=== PATIENT | female | born 1990 | race Caucasian/White ===

== ENCOUNTER → 2016-09-25 | Outpatient (REF) | payer OTHER | LOC: M LAB REF 19:47 | PROVIDERS: ATTEND Physician Assistant | DX: J02.9 Acute pharyngitis, unspecified (principal) ==

== ENCOUNTER → 2016-10-09 | Outpatient (REF) | payer OTHER | LOC: M LAB REF 18:47 | PROVIDERS: ATTEND Physician Assistant | DX: J02.9 Acute pharyngitis, unspecified (principal) ==

== ENCOUNTER → 2019-02-04 | Outpatient (CLI) | payer OTHER ==
[2019-02-04 18:25] LABS: CHLAMYDIA DNA AMPLIFICATION NEGATIVE (NEGATIVE); GC DNA AMPLIFICATION NEGATIVE (NEGATIVE)
== END ==
LOC: M WUC 14:58
PROVIDERS: ATTEND Registered Nurse
DX: Z01.818 Encounter for other preprocedural examination (principal)

== ENCOUNTER → 2019-02-04 | Outpatient (CLI) | payer OTHER | LOC: M WUC 14:54 | PROVIDERS: ATTEND Nurse Practitioner Family | DX: Z36.89 Encounter for other specified antenatal screening (principal) ==

== ENCOUNTER 2019-02-12 18:26 | Emergency (ER) | payer OTHER ==
[~2019-02-12] VITALS: Ht 172.7 cm; Wt 90.6 kg
[2019-02-12] MEDS ORDERED: SERT-138 (18:33)
[2019-02-12] MEDS ORDERED: LIOT25TA8 (18:33)
[2019-02-12] MEDS ORDERED: CLON0.5T2 (18:33)
[2019-02-12] MEDS ORDERED: VYVA40CA3 (18:33)
[2019-02-12 19:13] LABS: BASO # 0.1 10^3/uL (0.0-0.2); BASO % 0.7 % (0.0-1.0); EOS # 0.1 10^3/uL (0.0-0.50); EOS % 1.7 % (0.0-3.0); HEMATOCRIT 38.1 % (36.0-47.0); HEMOGLOBIN 12.9 g/dl (12.0-15.5); LYMPH # 2.6 10^3/uL (1.5-6.5); LYMPH % 31.2 % (24.0-44.0); MEAN CORPUSCULAR HEMOGLOBIN 31.7 pg (27.0-33.0); MEAN CORPUSCULAR HGB CONC 33.9 g/dl (32.0-36.5); MEAN CORPUSCULAR VOLUME 93.6 fl (80.0-96.0); MONO # 0.9 10^3/uL (0.0-0.8); MONO % 10.8 % (0.0-5.0); NEUTROPHILS # 4.7 10^3/uL (1.8-7.7); NEUTROPHILS % 55.4 % (36.0-66.0); PLATELET COUNT, AUTOMATED 226 10^3/uL (150-450); RED BLOOD COUNT 4.07 10^6/uL (4.00-5.40); WHITE BLOOD COUNT 8.4 10^3/uL (4.0-10.0)
[2019-02-12 19:31] LABS: BLOOD UREA NITROGEN 17 MG/DL (7-18); CALCIUM LEVEL 8.8 MG/DL (8.5-10.1); CARBON DIOXIDE LEVEL 26 MEQ/L (21-32); CHLORIDE LEVEL 106 MEQ/L (98-107); CREATININE FOR GFR 0.59 MG/DL (0.55-1.30); GLOMERULAR FILTRATION RATE > 60.0 (>60); GLUCOSE, FASTING 84 MG/DL (70-100); HCG, SERUM QUANTITATIVE 669 MIU/ML; POTASSIUM SERUM 4.4 MEQ/L (3.5-5.1); SODIUM LEVEL 137 MEQ/L (136-145)
--- NOTE | 2019-02-12 20:23 | REPVR ---
EXAM: US First Trimester, Transabdominal and US , Transvaginal EXAM DATE/TIME: 02/12/2019 7:26 PM CLINICAL HISTORY: 28 years old, female; complicated by abdominal or pelvic pain; Right lower quadrant; First trimester; Gestational age or lmp: Unknown; Prior surgery; Surgery date: 3-7 days post-operative; Additional info: Recent , ? retained products TECHNIQUE: Imaging protocol: Real-time transabdominal obstetrical ultrasound of the maternal pelvis and a first trimester , less than 14 weeks 0 days, with image documentation. Transvaginal imaging was used for better evaluation of the fetus and adnexa. COMPARISON: US PELVIC NON OB COMPLETE 05/22/2013 1:25 PM FINDINGS: Uterus: The uterus measures 10.6 x 3.2 x 5.3 cm. The endometrium measures 0.3 cm in thickness. No intrauterine or retained products of conception are seen. Cervix: Unremarkable. Right adnexa: The right ovary measures 2.9 x 2.1 x 2.6 cm and contains a 1.3 x 1 4 x 1 1 cm thick-walled cyst, possible corpus luteum. Left adnexa: The left ovary measures 3.1 x 2.0 x 2.0 cm. Intraperitoneal: No intraperitoneal free fluid. IMPRESSION: No intrauterine or sonographic evidence of retained products of conception. Electronically signed by: Shanda Morris On 02/12/2019 20:23:28 PM
[2019-02-12] MEDS ORDERED: NS 1,000 ML IV ONE (22:00)
[2019-02-12] MEDS ORDERED: KETOROLAC 30 MG/ML VIAL (J1885) IV ONE (22:00)
[2019-02-12] MEDS ORDERED: diazePAM 10 MG/2 ML INJ (J3360) IV ONE (22:00)
[2019-02-12] MEDS ORDERED: ISOVUE-370 76% 100ML VIAL (Q9967) As Ordered ONE (22:49)
--- NOTE | 2019-02-13 00:01 | REPVR ---
EXAM: CT Abdomen and Pelvis With Contrast EXAM DATE/TIME: 02/12/2019 11:04 PM CLINICAL HISTORY: 28 years old, female; Abdominal pain; Localized; Lower; Additional Info: RLQ, LUQ pain, 6d S/P D TECHNIQUE: Imaging protocol: Axial computed tomography images of the abdomen and pelvis with intravenous contrast. Coronal and sagittal reformatted images were created and reviewed. Radiation optimization: All CT scans at this facility use at least one of these dose optimization techniques: automated exposure control; mA and/or kV adjustment per patient size (includes targeted exams where dose is matched to clinical indication); or iterative reconstruction. Contrast material: ISOVUE 370;Contrast volume: 100 ml;Contrast route: IV; COMPARISON: CT ABD PELVIS WITH CONTRAST 01/30/2014 10:24 PM FINDINGS: Liver: Normal. No mass. Gallbladder and bile ducts: Normal. No calcified stones. No ductal dilation. Pancreas: Normal. No ductal dilation. Spleen: Normal. No splenomegaly. Adrenals: Normal. No mass. Kidneys and ureters: Normal. No hydronephrosis. Stomach and bowel: Negative for colonic diverticulitis. No abnormal bowel dilatation. No abnormal bowel wall thickening. Copious stool throughout the colon. Appendix: Appendix is normal. Intraperitoneal space: Normal. No free air. No significant fluid collection. Vasculature: Normal. No abdominal aortic aneurysm. Lymph nodes: Normal. No enlarged lymph nodes. Bladder: Unremarkable as visualized. Reproductive: Uterus is normal. Bones/joints: Disc osteophyte complex at L1-L2 with mild spinal stenosis. No acute fracture. Soft tissues: Unremarkable. IMPRESSION: 1. Copious stool throughout the colon. 2. No evidence of bowel obstruction or diverticulitis. 3. Disc osteophyte complex at L1-L2 with mild spinal stenosis. Unchanged from prior. Electronically signed by: Brian Kelly On 02/13/2019 00:00:21 AM
[2019-02-13] MEDS ORDERED: VALI5TAB PO (00:28)
[2019-02-13 00:29] VITALS: BP 114/74
== END 2019-02-13 00:52 | disposition home or self-care (01) ==
LOC: M ED 18:26
DX: R10.9 Unspecified abdominal pain (principal); Z98.890 Other specified postprocedural states; F41.9 Anxiety disorder, unspecified; E72.12 Methylenetetrahydrofolate reductase deficiency; Z87.891 Personal history of nicotine dependence; J30.2 Other seasonal allergic rhinitis; Z79.899 Other long term (current) drug therapy
CPT/HCPCS: 74177; 76801; 76817; 80048; 81001; 84702; 85025; 86850; 86900; 86901; 93976; 96374; 99284; J3360; Q9967

== ENCOUNTER → 2019-02-20 | Outpatient (CLI) | payer OTHER ==
[~2019-02-20] MED LIST: CLON0.5T8; LIOT25TA2; SERT-138; VALI5TAB PO; VYVA40CA3
--- NOTE | 2019-02-20 16:19 | REP ---
Thyroid ultrasound: The patient reportedly has a palpable neck mass. Ultrasonography of the neck mass is performed. The right thyroid lobe measures 4.3 x 2.0 x 1.6 cm. The left thyroid lobe measures 4.1 x 1.3 x 1.6 cm. The thyroid isthmus measures 3 mm thickness. The thyroid is upper normal size. The thyroid parenchyma is diffusely heterogeneous. There are no focal thyroid nodules or cysts. There are no extra thyroid masses identified by ultrasound. Impression: The thyroid gland is diffusely upper normal size. The thyroid parenchyma is diffusely heterogeneous, this is nonspecific and may represent diffuse thyroid goiter, however, can also be seen and thyroiditis. There are no focal thyroid masses or cysts. No extra thyroid masses or cysts are identified. Electronically Signed by Tone Charles MD 02/20/2019 04:11 P
--- NOTE | 2019-02-20 16:28 | REP ---
Focused left breast sonography: History: Palpable lump 2 o'clock. Findings: Left breast is scanned from 1 o'clock to 3 o'clock adjacent to the nipple at the site of the palpable lump. There is heterogeneous fibroglandular background echotexture. At the 2 o'clock position at the level of the palpable lump there is a 0.4 x 0.3 x 0.2 cm subdermal avascular cyst. No other abnormality. Impression: BIRADS category II benign findings. Clinical follow-up is advised. Electronically Signed by Nicholas Ponce MD 02/20/2019 04:52 P
== END ==
LOC: M RAD 14:21
PROVIDERS: ATTEND Nurse Practitioner Family
DX: N63.21 Unspecified lump in the left breast, upper outer quadrant (principal); E06.9 Thyroiditis, unspecified

== ENCOUNTER → 2019-04-15 | Outpatient (REF) | payer OTHER ==
[2019-04-15 17:51] LABS: ALBUMIN 3.9 GM/DL (3.2-5.2); ALT/SGPT 30 U/L (12-78); BILIRUBIN,TOTAL 0.6 MG/DL (0.2-1.0); BLOOD UREA NITROGEN 13 MG/DL (7-18); CALCIUM LEVEL 8.8 MG/DL (8.5-10.1); CARBON DIOXIDE LEVEL 26 MEQ/L (21-32); CHLORIDE LEVEL 104 MEQ/L (98-107); CREATININE FOR GFR 0.64 MG/DL (0.55-1.30); FREE T4 0.53 NG/DL (0.76-1.46); GLOMERULAR FILTRATION RATE > 60.0 (>60); GLUCOSE, FASTING 59 MG/DL (70-100); POTASSIUM SERUM 4.2 MEQ/L (3.5-5.1); SODIUM LEVEL 138 MEQ/L (136-145); TOTAL PROTEIN 7.7 GM/DL (6.4-8.2)
== END ==
LOC: M SFHCPLAZ 14:10
PROVIDERS: ATTEND Nurse Practitioner Family
DX: E03.9 Hypothyroidism, unspecified (principal)

== ENCOUNTER 2020-07-19 13:13 | Emergency (ER) | payer OTHER ==
[~2020-07-19] VITALS: Ht 174 cm; Wt 105.4 kg
[~2020-07-19 13:13] MED LIST changes: +CLON0.5T2; -CLON0.5T8; -LIOT25TA2; +LIOT25TA8
--- OUTSIDE RECORDS SUMMARY | 2020-07-19 13:20 | CCD | Continuity of Care Document ---
Author Author [facility] Organization Unknown Address [address] [place] [address] [place] [address] Phone [phone] Care Team Providers Care Library Director Name Role Phone Manuel Yu Publi AUTM [phone] Problems Description No Information Available Social History Type Date Description Comments Sex Unknown Tobacco Use Start: Unknown Currently smokes 1-5 Cigarettes Daily ETOH Use Occasionally consumes alcohol Tobacco Use Start: Unknown Patient is a current smoker, smo kes every day Allergies, Adverse Reactions, Alerts Description No Known Drug Allergies Medications Active Medications SIG Qnty Indications Ordering Provide r Date Vyvanse 30mg Capsules Unknown Zoloft 100mg Tablets 1 by mouth every day Unknown Cytomel Unknown Immunizations Description No Information Available Vital Signs Date Vital Result Comment 10/09/2016 1:40pm BP Systolic 110 mmHg BP Diastolic 76 mmHg Heart Rate 82 /min Respiratory Rate 18 /min O2 % BldC Oximetry 98 % Body Temperature 98.0 F Weight 225.00 lb Height 68 inches 5'8" BMI (Body Mass Index) 34.2 kg/m2 Pain Level 4 09/25/2016 4:04pm BP Systolic 126 mmHg BP Diastolic 86 mmHg Heart Rate 96 /min Respiratory Rate 18 /min O2 % BldC Oximetry 98 % Body Temperature 98.2 F Weight 223.00 lb Height 68 inches 5'8" BMI (Body Mass Index) 33.9 kg/m2 Pain Level 5 Results Description No Information Available Procedures Description No Information Available Medical Devices Description No Information Available Encounters Description No Information Available Assessments Date Code Description Provider 04/20/2020 Z20.828 Contact with and (vázquez spected) exposure to other viral communicable diseases CHLOE Don 03/03/2020 Z20.828 Contact with and (vázquez spected) exposure to other viral communicable diseases CHLOE Jaramillo Plan of Treatment No Information Available Functional Status Description No Information Available Mental Status Description No Information Available Referrals Description No Information Available
--- OUTSIDE RECORDS SUMMARY | 2020-07-19 13:20 | CCD | Continuity of Care Document ---
Author Author [facility] Organization [facility] Address [address] [place] [address] Phone Support Name Relationship Address Phone Karen Brady PRS [address] [facility] [address] Allergies, Adverse Reactions, Alerts Allergen Type Severity Reaction Last Updated Verified Status SEASONAL ALLERGIES Allergy Moderate plugged up nose, sneezing, sl throat swe lling, eyes puffy January 26, 2020 10:13am No Active Medications Medication Status Dose Units Route Directions Qty Days Start Date End Date Instructions Venlafaxine Active MG PO January 26, 2020 10:13am Lisdexamfetamine (Vyvanse) 50 mg capsule Active MG PO January 26, 2020 10:1 5am Clonazepam Active MG PO January 26, 2020 10:16am Buspirone Active MG PO January 26, 2020 10:16am Amoxicillin Active MG PO January 26, 2020 10:17am Chlorhexidine Gluconate Active BC January 26, 2020 10:17am Acetaminophen Active MG PO January 26, 2020 10:20am Ibuprofen Active MG PO January 26, 2020 10:20am Cyclobenzaprine Discontinued 10 MG PO Three times a day 15 5 January 26, 2020 10: 51am January 30, 2020 10:02am Liothyronine Discontinued 25 MCG PO daily 90 January 26, 2020 11:05am June 08, 2020 3:44pm Liothyronine Active 25 MCG PO daily 30 June 22, 2020 2:55pm Venlafaxine (Effexor Xr) 75 MG capsule,extended releas e 24hr Discontinued 75 MG PO Three times a day November 25, 2014 1:52pm July 16, 2015 1:57pm [place] Carbonate Discontinued 300 MG PO Four Times a Day November 25, 2014 1:52p m July 16, 2015 1:57pm trazadone Discontinued NEEDED November 25, 2014 1:52pm July 09, 2015 11:55am Clonazepam Discontinued 0.5 MG PO NEEDED November 25, 2014 1:53pm July 16, 2015 2:16pm Metformin Discontinued 1 TAB PO 2 Times Per Day 180 December 16, 2014 12:15pm August 20, 2015 4:58pm Spironolactone Discontinued 25 MG PO 2 Times Per Day December 16, 2014 12:15pm July 05, 2015 11:11am Levothyroxine (Synthroid) 25 MCG tablet Discontinued 25 MCG PO Once Per Day 30 December 16, 2014 12:15pm December 13, 2015 2:05pm CONTROL PILL Discontinued December 16, 2014 12:15pm December 13, 2015 2:04pm Trazodone Discontinued 1 TAB PO 2 Times Per Day 60 July 09, 2015 11:55am July 09, 2015 11:56am 2 p.o. q h s as directed Trazodone Discontinued 2 TAB PO At Bedtime 60 July 09, 2015 11:56am July 16, 2015 2:16pm 2 p.o. q hs as directed Venlafaxine Discontinued 75 MG PO Four Times a Day 120 July 16, 2015 1:57pm July 16, 2015 2:16pm Trazodone Discontinued 0 .5 TAB PO At Bedtime 30 July 16, 2015 2:16pm November 25, 2015 1:55pm 1/2 or 1 po p.o. q hs prn insomnia. Sertraline (Zoloft) 50 MG tablet Dis continued 1 TAB PO O nce Per Day 30 July 16, 2015 2:16pm December 13, 2015 2:06pm Clonazepam Discontinued 0.5 MG PO BID prn 60 July 16, 2015 2:16pm August 11, 2015 2:57pm prn anxiety Clonazepam Discontinued 0.5 MG PO BID prn August 11, 2015 2:57pm September 07, 2015 2:54pm prn anxiety Clonazepam Discontinued 0.5 MG PO BID prn September 07, 2015 3:01pm September 08, 2015 9:36am prn anxiety Clonazepam Discontinued 0.5 MG PO BID PRN September 08, 2015 9:36am November 25, 2015 2:22pm BID PRN FOR ANXIETY Metformin Discontinued 2 50 MG PO Once Per Day 60 September 08, 2015 12:35pm June 20, 2016 3:04pm Clonazepam Discontinued 0.5 MG PO BID PRN November 25, 2015 2:23pm December 23, 2015 7:04am BID PRN FOR ANXIETY Sertraline (Zoloft) 100 MG tablet Di scontinued 100 MG PO Once Per Day November 25, 2015 2:31 pm March 10, 2016 7:04am Lisdexamfetamine (Vyvanse) 20 MG capsule Discontinued 20 MG PO O nce Per Day November 25, 2015 2:32pm December 23, 2015 7:04am Norgestimate-Ethinyl Estradiol (Sprintec 28 Day Tablet) 1 EACH tablet Discontinued 1 EACH PO Once Per Day December 13, 2015 2:04pm December 12 2:06pm Levothyroxine (Synthroid*) 50 MCG tablet Discontinued 1 TAB PO O nce Per Day December 13, 2015 2:05pm June 20, 2016 3:18pm Norgestimate-Ethinyl Estradiol (Sprintec 28 Day Tablet) 1 EACH tablet Discontinued 1 EACH PO Once Per Day December 13, 2015 2:06pm January 15 6:59am Sertraline Discontinued 1 TAB PO Once Per Day December 13, 2015 2:06pm December 13, 2015 2:06pm Sertraline Discontinued 1 TAB PO Once Per Day December 13, 2015 2:06pm June 20, 2016 3:04pm Clonazepam Discontinued 0.5 MG PO BID PRN December 23, 2015 7:04am February 08, 2016 5:18pm BID PRN FOR ANXIETY Lisdexamfetamine (Vyvanse) 20 MG capsule Discontinued 20 MG PO O nce Per Day December 23, 2015 7:04am June 20, 2016 3:04pm Lisdexamfetamine (Vyvanse) 30 MG capsule Discontinued 30 MG PO O nce Per Day December 30, 2015 1:20pm February 08, 2016 5:18pm Clonazepam Discontinued 0.5 MG PO BID PRN February 08, 2016 5:19pm March 07, 2016 9:24am BID PRN FOR ANXIETY Lisdexamfetamine (Vyvanse) 30 MG capsule Discontinued 30 MG PO O nce Per Day February 08, 2016 5:19pm March 07, 2016 9:24am Clonazepam Discontinued 0.5 MG PO BID PRN March 07, 2016 9:25am April 07, 2016 2:16pm BID PRN FOR ANXIETY Lisdexamfetamine (Vyvanse) 30 MG capsule Discontinued 30 MG PO O nce Per Day March 07, 2016 9:25am April 07, 2016 2:16pm Sertraline (Zoloft) 100 MG tablet Di scontinued 100 MG PO Once Per Day March 10, 2016 7:04am August 25, 2016 11:40am Clonazepam Discontinued 0.5 MG PO BID PRN April 07, 2016 2:17pm May 18, 2016 5:42pm BID PRN FOR ANXIETY Lisdexamfetamine (Vyvanse) 30 MG capsule Discontinued 30 MG PO O nce Per Day April 07, 2016 2:17pm May 18, 2016 5:42pm Clonazepam Discontinued 0.5 MG PO BID PRN May 18, 2016 5:42pm June 22, 2016 12:54pm BID PRN FOR ANXIETY Lisdexamfetamine (Vyvanse) 30 MG capsule Discontinued 30 MG PO O nce Per Day May 18, 2016 5:42pm June 22, 2016 12:54pm Levothyroxine Discontinued 1 TAB PO Once Per Day June 20, 2016 3:21pm June 22, 2016 10:37am Levothyroxine Discontinued 1 TAB PO Once Per Day June 22, 2016 10:37am August 22, 2016 8:58am Clonazepam Discontinued 0.5 MG PO BID PRN June 22, 2016 12:55pm July 18, 2016 1:39pm BID PRN FOR ANXIETY Lisdexamfetamine (Vyvanse) 30 MG capsule Discontinued 30 MG PO O nce Per Day June 22, 2016 12:55pm July 18, 2016 1:39pm Clonazepam Discontinued 0.5 MG PO BID PRN July 18, 2016 1:40pm August 22, 2016 9:27am BID PRN FOR ANXIETY Lisdexamfetamine (Vyvanse) 30 MG capsule Discontinued 30 MG PO O nce Per Day July 18, 2016 1:40pm August 22, 2016 9:27am Lisdexamfetamine (Vyvanse) 30 MG capsule Discontinued 30 MG PO O nce Per Day August 22, 2016 9:28am September 21, 2016 4:13pm Clonazepam Discontinued 0.5 MG PO BID PRN August 22, 2016 9:30am September 21, 2016 4:13pm BID PRN FOR ANXIETY Liothyronine (Cytomel) 25 MCG tablet Discontinued 25 MCG PO Once Per Day August 22, 2016 9:38am August 25, 2016 11:40am Sertraline (Zoloft) 25 MG tablet Dis continued 25 MG PO O nce Per Day August 22, 2016 9:47am August 25, 2016 11:40am Liothyronine (Cytomel) 25 MCG tablet Discontinued 25 MCG PO Once Per Day August 25, 2016 11:40am February 01, 2017 3:57pm Sertraline (Zoloft) 100 MG tablet Di scontinued 100 MG PO Once Per Day August 25, 2016 11:40am November 05, 2017 12:17pm Sertraline (Zoloft) 25 MG tablet Dis continued 25 MG PO O nce Per Day August 25, 2016 11:40am November 05, 2017 12:17pm Clonazepam Discontinued 0.5 MG PO BID PRN September 21, 2016 4:14pm October 31, 2016 4:46pm BID PRN FOR ANXIETY Lisdexamfetamine (Vyvanse) 30 MG capsule Discontinued 30 MG PO O nce Per Day September 21, 2016 4:14pm October 31, 2016 4:46pm Clonazepam Discontinued 0.5 MG PO BID PRN October 31, 2016 4:47pm 2016 3:15pm BID PRN FOR ANXIETY Lisdexamfetamine (Vyvanse) 30 MG capsule Discontinued 30 MG PO O nce Per Day October 31, 2016 4:47pm November 24, 2016 10:43am Lisdexamfetamine (Vyvanse) 40 MG capsule Discontinued 40 MG PO O nce Per Day November 24, 2016 10:44am December 25, 2016 3:15pm Varenicline (Chantix*) 1 EACH tablets,dose pack Discontinued 1 TAB PO As Directed (Daily) November 24, 2016 10:47am January 04, 2017 10:47am Days 1 3: Take 1 tb (0.5 mg) once daily Days 4 7: Take 1 tb (0.5 mg) twice daily Day 8 on: 1 mg twice daily Clonazepam Discontinued 0.5 MG PO BID PRN December 25, 2016 3:16pm January 04, 2017 10:47am BID PRN FOR ANXIETY. #[id number] Lisdexamfetamine (Vyvanse) 40 MG capsule Discontinued 40 MG PO O nce Per Day December 25, 2016 3:16pm January 04, 2017 10:48am #[id number] Lisdexamfetamine (Vyvanse) 40 MG capsule Discontinued 40 MG PO O nce Per Day 60 January 04, 2017 10:49am February 27, 2017 2:48pm #[id number] Clonazepam Discontinued 0.5 MG PO BID PRN January 05, 2017 12:28pm February 01, 2017 3:57pm BID PRN FOR ANXIETY. #[id number] Norgestimate-Ethinyl Estradiol (Sprintec 28 Day Tablet) 1 EACH tablet Discontinued 1 EACH PO Once Per Day 3 January 15, 2017 6:59am September 06 7:25am Liothyronine (Cytomel) 25 MCG tablet Discontinued 25 MCG PO Once Per Day February 01, 2017 3:57pm May 16, 2017 5:57pm Clonazepam Discontinued 0.5 MG PO BID PRN February 01, 2017 3:57pm February 05, 2017 10:37am BID PRN FOR ANXIETY. #[id number] Clonazepam Discontinued 0.5 MG PO BID PRN February 05, 2017 10:38am March 14, 2017 4:28pm BID PRN FOR ANXIETY. #[id number] Omeprazole Discontinued 40 MG PO Once Per Day February 22, 2017 8:07am October 30, 2018 5:57am Omeprazole Discontinued 40 MG PO Once Per Day February 22, 2017 8:07am January 26, 2020 10:18am Lisdexamfetamine (Vyvanse) 40 MG capsule Discontinued 40 MG PO O nce Per Day 60 February 27, 2017 2:48pm April 09, 2017 11:22am #[id number] Clonazepam Discontinued 0.5 MG PO BID PRN March 14, 2017 4:29pm April 19, 2017 12:24pm BID PRN FOR ANXIETY. #[id number] Lisdexamfetamine (Vyvanse) 40 MG capsule Discontinued 40 MG PO O nce Per Day 60 April 09, 2017 11:22am May 16, 2017 5:57pm #[id number] Clonazepam Discontinued 0.5 MG PO BID PRN 30 April 19, 2017 12:25pm May 16, 2017 5:57pm BID PRN FOR ANXIETY. #[id number] Liothyronine (Cytomel) 25 MCG tablet Discontinued 25 MCG PO Once Per Day 90 May 16, 2017 5:57pm December 25, 2017 9:16am as above Clonazepam Discontinued 0.5 MG PO BID PRN 30 May 16, 2017 5:58pm June 12, 2017 5:26pm BID PRN FOR ANXIETY. #[id number] Lisdexamfetamine (Vyvanse) 40 MG capsule Discontinued 40 MG PO O nce Per Day 60 May 16, 2017 5:58pm July 23, 2017 11:37am #[id number] Clonazepam Discontinued 0.5 MG PO BID PRN 30 June 12, 2017 5:29pm July 23, 2017 11:42am BID PRN FOR ANXIETY. #[id number] Varenicline (Chantix) 1 MG tablet Di scontinued 1 MG PO 2 Times Per Day 60 July 23, 2017 11:32am October 30, 2018 6:20am Varenicline (Chantix) 1 MG tablet Di scontinued 1 MG PO 2 Times Per Day 60 July 23, 2017 11:32am January 26, 2020 10:18am Lisdexamfetamine (Vyvanse) 40 MG capsule Discontinued 40 MG PO O nce Per Day 30 July 23, 2017 11:38am September 17, 2017 2:22pm #[id number] Clonazepam Discontinued 0.5 MG PO BID PRN 45 July 23, 2017 11:43am September 17, 2017 2:22pm BID PRN FOR ANXIETY. #[id number] Norgestimate-Ethinyl Estradiol (Sprintec 28 Day Tablet) 1 EACH tablet Discontinued 1 EACH PO Once Per Day 3 September 06, 2017 7:25am June 1:24pm Clonazepam Discontinued 0.5 MG PO BID PRN 45 September 17, 2017 2:22pm October 29, 2017 4:36pm BID PRN FOR ANXIETY. #[id number] Lisdexamfetamine (Vyvanse) 40 MG capsule Discontinued 40 MG PO O nce Per Day September 17, 2017 2:22pm October 29, 2017 4:36pm #[id number] Clonazepam Discontinued 0.5 MG PO BID PRN October 29, 2017 4:37pm December 12, 2017 4:53pm BID PRN FOR ANXIETY. #[id number] Lisdexamfetamine (Vyvanse) 40 MG capsule Discontinued 40 MG PO O nce Per Day October 29, 2017 4:37pm December 12, 2017 4:53pm #[id number] Sertraline (Zoloft) 100 MG tablet Di scontinued 100 MG PO Once Per Day November 05, 2017 12:17 pm October 30, 2018 6:44am Sertraline (Zoloft) 100 MG tablet Di scontinued 100 MG PO Once Per Day November 05, 2017 12:17 pm January 26, 2020 10:18am Sertraline (Zoloft) 25 MG tablet Dis continued 25 MG PO O nce Per Day November 05, 2017 12:17 pm October 30, 2018 6:44am Sertraline (Zoloft) 25 MG tablet Dis continued 25 MG PO O nce Per Day November 05, 2017 12:17 pm January 26, 2020 10:18am Clonazepam Discontinued 0.5 MG PO BID PRN December 12, 2017 4:53pm January 10, 2018 3:17pm BID PRN FOR ANXIETY. #[id number] Lisdexamfetamine (Vyvanse) 40 MG capsule Discontinued 40 MG PO O nce Per Day December 12, 2017 4:53pm January 21, 2018 11:08am #[id number] Liothyronine (Cytomel) 25 MCG tablet Discontinued 25 MCG PO Once Per Day December 25, 2017 9:16am October 30, 2018 7:04am as above Liothyronine (Cytomel) 25 MCG tablet Discontinued 25 MCG PO Once Per Day December 25, 2017 9:16am January 26, 2020 10:17am as above Omeprazole Discontinued 40 MG PO Once Per Day January 10, 2018 3:15pm October 30, 2018 7:12am Omeprazole Discontinued 40 MG PO Once Per Day January 10, 2018 3:15pm January 26, 2020 10:18am Aripiprazole (Abilify*) 2 MG tablet Discontinued 2 MG PO On ce Per Day January 10, 2018 3:1 5pm October 30, 2018 7:12am Aripiprazole (Abilify*) 2 MG tablet Discontinued 2 MG PO On ce Per Day January 10, 2018 3:1 5pm January 26, 2020 10:15am Clonazepam Discontinued 0.5 MG PO BID PRN January 10, 2018 3:18pm March 07, 2018 11:31am BID PRN FOR ANXIETY. #[id number] Lisdexamfetamine (Vyvanse) 40 MG capsule Discontinued 40 MG PO O nce Per Day January 21, 2018 11:08am March 07, 2018 11:31am Bupropion Hcl (Wellbutrin Sr) 100 MG tab let sustained-release 12 hr Discontinued 100 MG PO Once Per Day February 27, 2018 11:16am January 11:11am Bupropion Hcl (Wellbutrin Sr) 100 MG tab let sustained-release 12 hr Discontinued 100 MG PO Once Per Day 30 February 28, 2018 11:11am March 05, 2018 10:33am Bupropion Hcl (Smoking Deter) Discontinued 150 MG PO Once Per Day March 05, 2018 10:33am October 30, 2018 7:33am Bupropion Hcl (Smoking Deter) Discontinued 150 MG PO Once Per Day March 05, 2018 10:33am January 26, 2020 10:14am Lisdexamfetamine (Vyvanse) 40 MG capsule Discontinued 40 MG PO O nce Per Day March 07, 2018 11:32am April 10, 2018 1:59pm #[id number] Clonazepam Discontinued 0.5 MG PO BID PRN March 07, 2018 11:32am April 10, 2018 1:59pm BID PRN FOR ANXIETY. #[id number] Lisdexamfetamine (Vyvanse) 40 MG capsule Discontinued 40 MG PO O nce Per Day April 10, 2018 1:59pm October 30, 2018 7:54am #[id number] Lisdexamfetamine (Vyvanse) 40 MG capsule Discontinued 40 MG PO O nce Per Day 7 April 10, 2018 1:59pm January 26, 2020 10:17am #[id number] Clonazepam Discontinued 0.5 MG PO BID PRN 14 April 10, 2018 1:59pm June 22, 2020 2:54pm BID PRN FOR ANXIETY. #[id number] Norgestimate-Ethinyl Estradiol (Sprintec 28 Day Tablet) 1 EACH tablet Discontinued 1 EACH PO Once Per Day 3 June 24, 2018 1:24pm October 30, 2018 8:44am Norgestimate-Ethinyl Estradiol (Sprintec 28 Day Tablet) 1 EACH tablet Discontinued 1 EACH PO Once Per Day 3 June 24, 2018 1:24pm December 10:18am Cyclobenzaprine Discontinued 10 MG PO Three times a day 15 January 30, 2020 10: 01am February 03, 2020 11:00pm Varenicline (Chantix Starting Month Box) 0.5 mg (11)- 1 mg (42) tablets,dose pack Active 0 PO per package directions April 23, 2020 2:52pm PO PER PKG DIR Liothyronine Discontinued 25 MCG PO daily June 08, 2020 3:44pm June 22, 2020 2:55pm Problems Active Problems Medical Problem Onset Date Status Low back pain Active Hypothyroidism Active Procedures Procedure Date Performed Status HIPS BILAT 2 VIEW W/PELVIS December 11:45am completed Xray Sacrum and coccyx January 25 11:45am completed Xray Lumbar spine AP/Lat January 26, 2020 11:44am completed Relevant Diagnostic Tests and/or Laboratory Data Diagnostic Imaging Reports Report Dictated Date/Time Dictated By Status Radiology Report January 26, 2020 1:17pm Rocco Keller MD completed [facility] [address] [place] [id number] [phone] NAME SEX PT STATUS ACCOUNT NUMBER ZOYA WONG REG REF [id number] ORDERING PHYSICIAN LOCATION MEDICAL RECORD NO. Karen LUIS BUSBY [id number] ATTENDING PHYSICIAN DATE OF DATE OF EXAM/TIME Karen Brady NP 1992 01/26/20 / 1245 TYPE / EXAM HIPS BILAT 2 VIEW W/PELVIS REASON FOR EXAM Back pain into hips; acute on chronic COMPARISON: None FINDINGS: There is normal alignment and position of the bones of the hip and pelvis. No evidence for subluxation or fracture can be identified. No significant degenerative changes are noted within the hip. IMPRESSION: No fracture, dislocation, or other significant abnormality. Reported By Rocco Keller MD on 01/26/201316 Signed By Rocco Keller MD on 01/26/201316 Date Time CC: Karen Keller MD Techn: YOUNG Trans Dt/Tm: Trans by: DT Prt Dt/Tm: [id number]: Total DLP = 0.00 mGy-cm Fluoroscopy Time (in secs): Radiology Report January 26, 2020 1:17pm Rocco Keller MD completed [place] [id number] [phone] NAME SEX PT STATUS ACCOUNT NUMBER ZOYA WONG REG REF [id number] ORDERING PHYSICIAN LOCATION MEDICAL RECORD NO. Karen Brady RAD [id number] ATTENDING PHYSICIAN DATE OF DATE OF EXAM/TIME Karen Brady NP 1990 01/26/20 / 1245 TYPE / EXAM Xray Sacrum and coccyx REASON FOR EXAM Back pain into hips; acute on chronic COMPARISON: None FINDINGS: There is normal alignment and position of the bones of the sacrum and coccyx. No evidence for a fracture or any other abnormalities can be noted. IMPRESSION: No fracture, dislocation, or other significant abnormality. Reported By Rocco Keller MD on 01/26/201316 Signed By Rocco Keller MD on 01/26/20 132 Date Time CC: Karen Cedillom Arianna, MD Techn: FROJO Trans Dt/Tm: Trans by: DT Prt Dt/Tm: : Total DLP = 0.00 mGy-cm Fluoroscopy Time (in secs): Radiology Report January 26, 2020 1:22pm Rocco Keller MD completed [facility] [address] [place] [id number] [phone] NAME SEX PT STATUS ACCOUNT NUMBER ZOYA WONG REG REF [id number] ORDERING PHYSICIAN LOCATION MEDICAL RECORD NO. Karen LUIS Brady RAD [id number] ATTENDING PHYSICIAN DATE OF DATE OF EXAM/TIME Karen Brady NP 1990 01/26/20 / 4 TYPE / EXAM Xray Lumbar spine AP/Lat REASON FOR EXAM Back pain into hips; acute on chronic COMPARISON: None FINDINGS: Routine views show normal alignment. The vertebral bodies and disk spaces are well-maintained. The pedicles and posterior elements are intact. No pars defects are seen. The SI joints are unremarkable. IMPRESSION: 1. No vertebral compression deformity or subluxation. 2. No significant degenerative change appreciated. 3. No lytic or blastic bone lesion. Reported By Rocco Keller MD on 01/26/20 1322 Signed By Rocco Keller MD on 01/26/20 1323 Date Time CC: Karen Brady; Rocco Keller MD Techn: YOUNG Trans Dt/Tm: Trans by: DT Prt Dt/Tm: : Total DLP = 0.00 mGy-cm Fluoroscopy Time (in secs): Health Concerns Health Concerns may be documented in an alternate section. Advance Directives Advance Directive Response Recorded Date/Time Advanced Directive No Isabel ly 2019 1:48pm Does Patient have a DNR? No November 27, 2014 9:01am Healthcare Proxy No November 27, 2014 9:01am Living Will No November 27, 2014 9:01am Chief Complaint and Reason for Visit Chief Complaint Thyroid dysfunction PAIN Telemed Visit Reason for Visit Low back pain Encounters Encounter Location(s) Ar rival/Admit Date Discharge/Depart Date Provider(s) Departed Physician/Provider Office Visit [facility] January 26, 2020 10:11am January 26, 2020 10:58am Karen valladares Registered Referred [facility] January 26, 2020 11:03am Karen Brady Departed Physician/Provider Office Visit [facility] June 22, 2020 3:10pm June 22, 2020 3:15pm Karen Brady Recent Diagnosis Onset Date Low back pain Assessments Diagnosis Onset Date Res olution Status Low back pain acute Family History Relationship Condition A ge at Onset Recorded Date/Time Not Specified Hypertension Unknown Cerebrovascular accident (CVA) Unknown Disorder of thyroid Un known Not Specified Diabetes mellitus Unknown Cardiac disease Unknown Functional Status No Functional Status information available Goals Goals may be documented in an alternate section. Immunizations No Immunization Information Available Mental Status No Mental Status Information Available Medical Equipment No Medical Equipment Information available Insurance Providers Guarantor ZOYA WONG Address [address] [place] [address] Contact Info. Home Phone: Payer Policy Id Coverage Id Subscriber's Name Subscriber Id Effective Date Expiration Date [facility] [id number] ZOYA WONG [id number] [facility] [id number] ZOYA WONG [id number] [facility] [id number] Alfa Wong 2014 2017 R/[facility] [id number] Alfa Wong [id number] Self Pay Self N/A [facility] [id number] Alfa Wong [id number] Plan of Treatment Labs ordered. Takes cytomel. Future Tests Future scheduled test information is unavailable Pending Tests Pending diagnostic test information is unavailable Future Visits Future appointment information is unavailable Referrals to Other Providers Referral information is unavailable Future Procedures Future procedure information is unavailable Future Medications Future medication information is unavailable Patient Instructions Patient instructions are unavailable Social History Smoking Status Status Date of Observation Former smoker January 26, 2020 11:12a m Observation Status Date of Observation Not March 31, 2016 Observation Status Observation Response Miguel e of Response Smoking Status Former smoker January 26, 2020 10:12am Assigned Sex Female Vital Signs Vital Reading Result Ref erence Range Collection Date/Time Height 68.5 [in_i] January 26, 2020 11:25am Weight 215.00 [lb_av] January 26, 2020 11:25am Body Temperature 98.2 [degF] 97.6-99.5 January 26, 2020 11:25am Heart Rate 78 /min 60-100 January 26, 2020 11:25am Respiratory rate 18 /min 12-24 January 26, 2020 11:25am Oxygen saturation by Pulse oximetry 98 % 95- 100 January 26, 2020 11:25am BP Systolic 110 mm[Hg] January 26, 2020 11:25am BP Diastolic 88 mm[Hg] January 26, 2020 11:25am BMI (Body Mass Index) 32.2 kg/m2 January 26, 2020 11:25am
--- OUTSIDE RECORDS SUMMARY | 2020-07-19 13:20 | CCD ---
Author Author [facility] Organization [facility] Address Unknown Phone Unavailable Care Team Providers Care Hat Renovator Name Role Phone Caitlyn, A Karen BOAT CAPTAIN Unavailable Unavailable Caitlyn, A Karen BOAT CAPTAIN Unavailable Unavailable Caitlyn, A Karen BOAT CAPTAIN Unavailable Unavailable Caitlyn, A Karen BOAT CAPTAIN Unavailable Unavailable Caitlyn, A Karen BOAT CAPTAIN Unavailable Unavailable Catilyn, A Karen BOAT CAPTAIN Unavailable Unavailable Caitlyn, A Karen BOAT CAPTAIN Unavailable Unavailable Caitlyn, A Karen BOAT CAPTAIN Unavailable Unavailable Caitlyn, A Karen BOAT CAPTAIN Unavailable Unavailable Caitlyn, A Karen BOAT CAPTAIN Unavailable Unavailable Caitlyn, A Karen BOAT CAPTAIN Unavailable Unavailable Caitlyn, A Karen BOAT CAPTAIN Unavailable Unavailable Caitlyn, A Karen BOAT CAPTAIN Unavailable Unavailable Caitlyn, A Karen BOAT CAPTAIN Unavailable Unavailable Caitlyn, A Karen BOAT CAPTAIN Unavailable Unavailable Caitlyn, A Karen BOAT CAPTAIN Unavailable Unavailable Caitlyn, A Karen BOAT CAPTAIN Unavailable Unavailable Caitlyn, A Karen BOAT CAPTAIN Unavailable Unavailable Caitlyn, A Karen BOAT CAPTAIN Unavailable Unavailable Caitlyn, A Karen BOAT CAPTAIN Unavailable Unavailable Caitlyn, A Karen BOAT CAPTAIN Unavailable Unavailable Caitlyn, A Karen BOAT CAPTAIN Unavailable Unavailable Caitlyn, A Karen BOAT CAPTAIN Unavailable Unavailable Caitlyn, A Karen BOAT CAPTAIN Unavailable Unavailable Caitlyn, A Karen BOAT CAPTAIN Unavailable Unavailable Caitlyn, A Karen BOAT CAPTAIN Unavailable Unavailable Caitlyn, A Karen BOAT CAPTAIN Unavailable Unavailable Caitlyn, A Karen BOAT CAPTAIN Unavailable Unavailable Caitlyn, A Karen BOAT CAPTAIN Unavailable Unavailable Caitlyn, A Karen BOAT CAPTAIN Unavailable Unavailable Caitlyn, A Karen BOAT CAPTAIN Unavailable Unavailable Caitlyn, A Karen BOAT CAPTAIN Unavailable Unavailable Caitlyn, A Karen BOAT CAPTAIN Unavailable Unavailable Caitlyn, A Karen BOAT CAPTAIN Unavailable Unavailable Caitlyn, A Karen BOAT CAPTAIN Unavailable Unavailable Caitlyn, A Karen BOAT CAPTAIN Unavailable Unavailable Caitlyn, A Karen BOAT CAPTAIN Unavailable Unavailable Caitlyn, A Karen BOAT CAPTAIN Unavailable Unavailable Re-disclosure Warning The records that you are about to access may contain information from federally-assisted alcohol or drug abuse programs. If such information is present, then the following federally mandated warning applies: This information has been disclosed to you from records protected by federal confidentiality rules (42 CFR part 2). The federal rules prohibit you from making any further disclosure of this information unless further disclosure is expressly permitted by the written consent of the person to whom it pertains or as otherwise permitted by 42 CFR part 2. A general authorization for the release of medical or other information is NOT sufficient for this purpose. The Federal rules restrict any use of the information to criminally investigate or prosecute any alcohol or drug abuse patient.The records that you are about to access may contain highly sensitive health information, the redisclosure of which is protected by Article 27-F of the [facility] Public Health law. If you continue you may have access to information: Regarding HIV / AIDS; Provided by facilities licensed or operated by the [facility] Office of Mental Health; or Provided by the [facility] Office for People With Developmental Disabilities. If such information is present, then the following [facility] mandated warning applies: This information has been disclosed to you from confidential records which are protected by state law. State law prohibits you from making any further disclosure of this information without the specific written consent of the person to whom it pertains, or as otherwise permitted by law. Any unauthorized further disclosure in violation of state law may result in a fine or retirement sentence or both. A general authorization for the release of medical or other information is NOT sufficient authorization for further disc losure. Allergies and Adverse Reactions Type Description Substance Reaction Status Data Source(s ) Environmental Allergy SEASONAL ALLERGIES SEASONAL ALLERGIES plug ged up nose, sneezing, sl throat swelling, eyes puffy [facility] Family History Family Member Name Family Member Gender Family Member Status Date o f Status Description Data Source(s) Unknown Condition [facility] Unknown Condition [facility] Unknown Condition [facility] Unknown Condition [facility] Unknown Condition [facility] Unknown Condition [facility] Unknown Unknown Problem [facility] ([facility]) Encounters Encounter Providers Location Date Indications Data Source(s ) Outpatient Attender: Karen Brady NPReferrer: Karen valladares BOAT CAPTAIN 06/22/2020 03:10:00 PM EST - 06/22/2020 03:15:00 PM EST [facility] Outpatient Attender: Karen Brady BOAT CAPTAIN 01/26/2020 12:03:00 PM EDT PAIN [facility] PAIN Outpatient Attender: Karen Brady NPReferrer: Karen valladares BOAT CAPTAIN 01/26/2020 11:11:00 AM EDT - 01/26/2020 11:58:00 AM EDT [facility] [address] [address] 12/24/2019 12:00:00 AM EDT eCW1 ([facility]) [facility] [address] [place] [address] 12/23/2019 12:00:00 AM EDT eCW1 ([facility]) [address] [address] 12/05/2019 12:00:00 AM EDT [facility] [address] [place] [address] 11/20/2019 12:00:00 AM EDT eCW1 ([facility]) [facility] [address] [place] [address] 11/17/2019 12:00:00 AM EDT eCW1 ([facility]) [address] [address] 11/14/2019 12:00:00 AM EDT eCW1 ([facility]) [facility] [address] [place] [address] 09/08/2019 12:00:00 AM EDT eCW1 ([facility]) [facility] [address] [place] [address] 08/04/2019 12:00:00 AM EST eCW1 ([facility]) [facility] [address] [place] [address] 08/04/2019 12:00:00 AM EST eCW1 ([facility]) [facility] [address] [place] [address] 07/09/2019 12:00:00 AM EST eCW1 ([facility]) [facility] [address] [place] [address] 06/16/2019 12:00:00 AM EST eCW1 ([facility]) [facility] [address] [place] [address] 06/06/2019 12:00:00 AM EST eCW1 ([facility]) [facility] [address] [place] [address] 06/04/2019 12:00:00 AM EST eCW1 ([facility]) [facility] [address] [place] [address] 05/26/2019 12:00:00 AM EST eCW1 ([facility]) [facility] [address] [place] [address] 05/23/2019 12:00:00 AM EST eCW1 ([facility]) [facility] [address] [place] [address] 05/22/2019 12:00:00 AM EST eCW1 ([facility]) [facility] [address] [facility] [address] [place] [address] 05/21/2019 12:00:00 AM EST eCW1 ([facility]) Medications Medication Brand Name Start Date Product Form Dose Route Admi nistrative Instructions Pharmacy Instructions Status Indications Reaction Description Data Source(s) 100 mg 07/14/2020 12:00:00 AM EST capsule 20 TAKE ONE CAPSULE BY MOUTH TWICE A DAY FOR 10 DAYS TAKE ONE CAPSULE BY MOUTH TWICE A DAY FOR 10 DAYS SOLD : 07/14/2020 [facility] 150 mg 07/14/2020 12:00:00 AM EST tablet 1 TAKE ONE TABLET BY MOUTH ONCE TAKE ONE TABLET BY MOUTH ONCE SOLD: 07/14/2020 [facility] 2 mg 06/29/2020 12:00:00 AM EST tablet 30 TAKE ONE TABLET BY MOUTH EVERY DAY, MAXIMUM DAILY DOSE = 1 TABLET TAKE ONE TABLET BY MOUTH EVERY DAY, MAXI MUM DAILY DOSE = 1 TABLET SOLD: 06/30/2020 [facility] venlafaxine 37.5 MG Oral Tablet VENLAFAXINE HCL 06/29/2020 12:00 :00 AM EST tablet 60 TAKE TWO TABLETS BY MOUTH EVERY DAY TAKE TWO TABLETS BY MOUTH EVERY DAY SOLD: 06/30/2020 [facility] buspirone hydrochloride 15 MG Oral Tablet BUSPIRONE HCL 06/29/2020 12:00:00 AM EST tablet 90 TAKE ONE TABLET BY MOUTH THR EE TIMES A DAY TAKE ONE TABLET BY MOUTH THREE TIMES A DAY SOLD: 06/30/2020 [facility] 50 mg 06/28/2020 12:00:00 AM EST capsule 30 TAKE ONE CAPSULE BY MOUTH EVERY MORNING MAXIMUM DAILY DOSE = 1 TAKE ONE CAPSULE BY MOUTH EVERY MORNING MAXIMUM DAILY DOSE = 1 SOLD: 06/28/2020 [facility] liothyronine sodium 0.025 MG Oral Tablet Liothyronine Liothy ronine 06/22/2020 02:55:22 PM EST 25 MCG active [facility] 25 mcg 2020 12:00:00 AM EST tablet 30 TAKE ONE TABLET BY MOUTH EVERY DAY TAKE ONE TABLET BY MOUTH EVERY DAY SOLD: 06/11/2020 [facility] liothyronine sodium 0.025 MG Oral Tablet Liothyronine Liothy ronine 06/08/2020 03:44:38 PM EST 25 MCG completed [facility] 2 mg 05/12/2020 12:00:00 AM EST tablet 30 TAKE ONE TABLET BY MOUTH EVERY DAY NEEDED MAXIMUM DAILY DOSE = 1 TABLET TAKE ONE TABLET BY MOUTH EVERY DAY NEEDED MAXIMUM DAILY DOSE = 1 TABLET SOLD: 05/13/2020 [facility] 0.5 mg (11)- 1 mg (42) 04/24/2020 12:00:00 AM EDT tablets,do se pack 53 USE PER PACKAGE DIRECTIONS USE PER PACKAGE DIRECTIONS SOLD: 04/24/2020 [facility] varenicline Varenicline (Chantix Startin g Month Box) 0.5 mg (11)- 1 mg (42) tablets,dose pack Varenicline (Chantix Starting Month Box) 0.5 mg (11)- 1 mg (42) tablets,dose pack 04/23/2020 03:52:10 PM EDT 0 active [facility] 50 mg 04/03/2020 12:00:00 AM EDT capsule 30 TAKE ONE CAPSULE BY MOUTH EVERY MORNING MAXIMUM DAILY DOSE = 1 TAKE ONE CAPSULE BY MOUTH EVERY MORNING MAXIMUM DAILY DOSE = 1 SOLD: 04/23/2020 [facility] 2 mg 03/30/2020 12:00:00 AM EDT tablet 30 TAKE ONE TABLET BY MOUTH ONCE DAILY NEEDED MAXIMUM DAILY DOSE = 1 TABLET TAKE ONE TABLET BY MOUTH ONCE DAILY NEEDED MAXIMUM DAILY DOSE = 1 TABLET SOLD: 04/01/2020 [facility] venlafaxine 75 MG Oral Tablet VENLAFAXINE HCL 03/30/2020 12:00:00 A M EDT tablet 60 TAKE TWO TABLETS BY MOUTH EVERY DAY TAKE TWO TAB LETS BY MOUTH EVERY DAY SOLD: 04/01/2020 [facility] 50 mg 03/04/2020 12:00:00 AM EDT capsule 30 TAKE ONE CAPSULE BY MOUTH EVERY MORNING * MAXIMUM DAILY DOSE = 1 TAKE ONE CAPSULE BY MOUTH EVERY MORNING * MAXIMUM DAILY DOSE = 1 SOLD: 03/05/2020 [facility] venlafaxine 75 MG Oral Tablet VENLAFAXINE HCL 03/03/2020 12:00:00 A M EDT tablet 60 TAKE TWO TABLETS BY MOUTH EVERY DAY TAKE TWO TAB LETS BY MOUTH EVERY DAY SOLD: 03/05/2020 [facility] buspirone hydrochloride 15 MG Oral Tablet BUSPIRONE HCL 03/03/2020 12:00:00 AM EDT tablet 90 TAKE ONE TABLET BY MOUTH THR EE TIMES A DAY TAKE ONE TABLET BY MOUTH THREE TIMES A DAY SOLD: 03/04/2020 [facility] 800 mg 02/13/2020 12:00:00 AM EDT tablet 40 TAKE ONE TABLET BY MOUTH FOUR TIMES A DAY WITH FOOD TAKE ONE TABLET BY MOUTH FOUR TIMES A DAY WITH FOOD SO LD: 02/15/2020 [facility] 500 mg 02/13/2020 12:00:00 AM EDT tablet 120 TAKE TWO TABLETS BY MOUTH EVERY 4 TO 6 HOURS NEEDED MAXIMUM DAILY DOSE = 8 TABLETS TAKE TWO TABLETS BY MOUTH EVERY 4 TO 6 HOURS NEEDED MAXIMUM DAILY DOSE = 8 TABLETS SOLD: 02/15/2020 [facility] 300-30 mg 02/05/2020 12:00:00 AM EDT tablet 15 TAKE ONE TABLET BY MOUTH THREE TIMES A DAY NEEDED FOR PAIN MAXIMUM DAILY DOSE = 3 TABLETS TAKE ONE TABLET BY MOUTH THREE TIMES A DAY NEEDED FOR PAIN MAXIMUM DAILY DOSE = 3 TABLETS SOLD: 02/05/2020 [facility] 500 mg 02/05/2020 12:00:00 AM EDT capsule 22 TAKE 2 CAPSULES BY MOUTH IMMEDIATELY THEN 1 CAPSULE BY MOUTH THREE TIMES A DAY TAKE 2 CAPSULES BY MOUTH IMMEDIATELY THEN 1 CAPSULE BY MOUTH THREE TIMES A DAY SOLD: 02/05/2020 [email or web address] Cyclobenzaprine hydrochloride 10 MG Oral Tablet Cyclobenzapr ine 01/30/2020 11:01:35 AM EDT 10 MG completed [facility] Cyclobenzaprine hydrochloride 10 MG Oral Tablet CYCLOBENZAPR INE HCL 01/30/2020 12:00:00 AM EDT tablet 15 TAKE ONE TABLET BY MOUTH THREE TIMES A DAY NEEDED FOR MUSCLE SPASM TAKE ONE TABLET BY MOUTH THREE TIMES A D AY NEEDED FOR MUSCLE SPASM SOLD: 01/30/2020 [email or web address] liothyronine sodium 0.025 MG Oral Tablet Liothyronine Liothy ronine 01/26/2020 12:05:03 PM EDT 25 MCG completed [facility] Cyclobenzaprine hydrochloride 10 MG Oral Tablet Cyclobenzapr ine 01/26/2020 11:51:18 AM EDT 10 MG active [facility] Cyclobenzaprine hydrochloride 10 MG Oral Tablet Cyclobenzapr ine 01/26/2020 11:51:18 AM EDT 10 MG completed [facility] Ibuprofen 800 MG Oral Tablet Ibuprofen 01/26/2020 11:20:[address] [facility] Ibuprofen 800 MG Oral Tablet Ibuprofen 01/26/2020 11:20:[address] [facility] Acetamin[facility] 01/26/2020 [facility] 11:20[facility] chlorhexidine gluconate 1.2 MG/ML [facility] Chlorhexid ine Gluconate Chlorhexidine Gluconate 01/26/2020 11:17:23 AM EDT active [facility] chlorhexidine gluconate 1.2 MG/ML [facility] Chlorhexid ine Gluconate Chlorhexidine Gluconate 01/26/2020 11:17:23 AM EDT active [facility] Amoxicillin 500 MG Oral Tablet Amoxicillin 01/26/2020 11:17:[address] [facility] Amoxicillin 500 MG Oral Tablet Amoxicillin 01/26/2020 11:17:[address] [facility] Buspirone 01/26/2020 11:16:42 AM EDT active [facility] Buspirone 01/26/2020 11:16:42 AM EDT [facility] Clonazepam 2 MG Oral Tablet Clonazepam 01/26/2020 11:16:[address] [facility] Clonazepam 2 MG Oral Tablet Clonazepam 01/26/2020 11:16:[address] [facility] lisdexamfetamine dimesylate 50 MG Oral C apsule Lisdexamfetamine (Vyvanse) 50 mg capsule Lisdexamfetamine (Vyvanse) 50 mg capsule 01/26/2020 11:15:22 AM EDT active [facility] lisdexamfetamine dimesylate 50 MG Oral C apsule Lisdexamfetamine (Vyvanse) 50 mg capsule Lisdexamfetamine (Vyvanse) 50 mg capsule 01/26/2020 11:15:22 AM EDT active [facility] venlafaxine 37.5 MG Oral Tablet Venlafaxine Venlafaxine 01/26/2020 11:13:51 AM EDT active [facility] venlafaxine 37.5 MG Oral Tablet Venlafaxine Venlafaxine 01/26/2020 11:13:51 AM EDT active [facility] Cyclobenzaprine hydrochloride 10 MG Oral Tablet CYCLOBENZAPR INE HCL 01/26/2020 12:00:00 AM EDT tablet 15 TAKE ONE TABLET BY MOUTH THREE TIMES A DAY NEEDED FOR MUSCLE SPASM TAKE ONE TABLET BY MOUTH THREE TIMES A D AY NEEDED FOR MUSCLE SPASM SOLD: 01/26/2020 [facility] Chantix Continuing Month [place] 1 MG Chantix Continuing Month P ak 1 MG 11/20/2019 12:00:00 AM EDT active 1 tablet eCW1 ([facility]) Chantix Continuing Month [place]ome 1 MG Chantix Continuing Month P ak 1 MG 11/20/2019 12:00:00 AM EDT 1.0 {tablet} active Chantix Continuing Month [place] 1 MG eCW1 ([facility]) Dextroamphetamine Sulfate 15 MG Extended Release Oral Capsule [Dexedrine] Dexedrine 15 MG Dexedrine 15 MG 08/04/2019 12:00:00 AM EST active 2 capsule eCW1 ([facility]) Dextroamphetamine Sulfate 15 MG Extended Release Oral Capsule [Dexedrine] Dexedrine 15 MG Dexedrine 15 MG 08/04/2019 12:00:00 AM EST 2.0 {capsul e} active Dexedrine 15 MG eCW1 ([facility]) Chantix Continuing Month Bartolome 1 MG Chantix Continuing Month P ak 1 MG 06/18/2019 12:00:00 AM EST active 1 tablet eCW1 ([facility]) Chantix Continuing Month [place]ome 1 MG Chantix Continuing Month P ak 1 MG 06/18/2019 12:00:00 AM EST 1.0 {tablet} active Chantix Continuing Month [place] 1 MG eCW1 ([facility]) Dextroamphetamine Sulfate 15 MG Extended Release Oral Capsule [Dexedrine] Dexedrine 15 MG Dexedrine 15 MG 05/22/2019 12:00:00 AM EST active 2 capsule eCW1 ([facility]) Norgestimate-Ethinyl Estradiol (Sprintec 28 Day Tablet) 1 EA CH tablet 06/24/2018 01:24:00 PM EST 1 EACH completed [facility] Norgestimate-Ethinyl Estradiol (Sprintec 28 Day Tablet) 1 EA CH tablet 06/24/2018 01:24:00 PM EST 1 EACH completed [facility] lisdexamfetamine dimesylate 40 MG Oral C apsule Lisdexamfetamine (Vyvanse) 40 MG capsule Lisdexamfetamine (Vyvanse) 40 MG capsule 04/10/2018 02:59:00 PM EDT 40 MG completed [facility] Clonazepam 0.5 MG Oral Tablet Clonazepam 04/10/2018 02:59:00 PM EDT 0.5 MG completed [facility] lisdexamfetamine dimesylate 40 MG Oral C apsule Lisdexamfetamine (Vyvanse) 40 MG capsule Lisdexamfetamine (Vyvanse) 40 MG capsule 04/10/2018 02:59:00 PM EDT 40 MG completed [facility] Bupropion Hcl (Smoking Deter) 03/05/2018 11:33:00 AM EDT [address] [facility] Bupropion Hcl (Smoking Deter) 03/05/2018 11:33:00 AM EDT [address] [facility] Omeprazole 40 MG Delayed Release Oral Capsule Omeprazole 01/10/2018 04:15:00 PM EDT 40 MG completed [facility] aripiprazole 2 MG Oral Tablet Aripiprazole (Abilify*) 2 MG tablet Aripiprazole (Abilify*) 2 MG tablet 01/10/2018 04:15:00 PM EDT 2 MG completed [facility] aripiprazole 2 MG Oral Tablet Aripiprazole (Abilify*) 2 MG tablet Aripiprazole (Abilify*) 2 MG tablet 01/10/2018 04:15:00 PM EDT 2 MG completed [facility] Omeprazole 40 MG Delayed Release Oral Capsule Omeprazole 01/10/2018 04:15:00 PM EDT 40 MG completed [facility] liothyronine sodium 0.025 MG Oral Tablet Liothyronine (Cytomel) 25 MCG tablet Liothyronine (Cytomel) 25 MCG tablet 12/25/2017 10:16:00 AM EDT [address] [facility] liothyronine sodium 0.025 MG Oral Tablet Liothyronine (Cytomel) 25 MCG tablet Liothyronine (Cytomel) 25 MCG tablet 12/25/2017 10:16:00 AM EDT [address] [facility] Sertraline 100 MG Oral Tablet [Zoloft] Sertraline (Zol oft) 100 MG tablet Sertraline (Zoloft) 100 MG tablet 11/05/2017 01:17:00 PM EDT [address] [facility] Sertraline 25 MG Oral Tablet [Zoloft] Sertraline (Zolo ft) 25 MG tablet Sertraline (Zoloft) 25 MG tablet 11/05/2017 01:17:00 PM EDT [address] [facility] Sertraline 100 MG Oral Tablet [Zoloft] Sertraline (Zol oft) 100 MG tablet Sertraline (Zoloft) 100 MG tablet 11/05/2017 01:17:00 PM EDT [address] [facility] Sertraline 25 MG Oral Tablet [Zoloft] Sertraline (Zolo ft) 25 MG tablet Sertraline (Zoloft) 25 MG tablet 11/05/2017 01:17:00 PM EDT [address] [facility] varenicline 1 MG Oral Tablet Varenicline (Chantix) 1 M G tablet Varenicline (Chantix) 1 MG tablet 07/23/2017 11:32:00 AM EST [facility] varenicline 1 MG Oral Tablet Varenicline (Chantix) 1 M G tablet Varenicline (Chantix) 1 MG tablet 07/23/2017 11:32:00 AM EST 1 MG c [facility] Omeprazole 40 MG Delayed Release Oral Capsule Omeprazole 02/22/2017 09:07:00 AM EDT 40 MG completed [facility] Omeprazole 40 MG Delayed Release Oral Capsule Omeprazole 02/22/2017 09:07:00 AM EDT 40 MG completed [facility] Insurance Providers Payer name Policy type / Coverage type Policy ID Covered democrat ID Covered democrat's relationship to murphy Policy Murphy Plan Information LUIGI [id number] SP [id number] LUIGI [id number] SP [id number] [place] [id number] S [id number] LUIGI I [id number] [facility] [id number] ANSI-Commercial [id number] ANSI-Commercial [id number] ANSI-Commercial [id number] ANSI-Commercial [id number] ANSI-Commercial [id number] ANSI-Commercial [id number] ANSI-Commercial [id number] ANSI-Commercial [id number] ANSI-Commercial [id number] ANSI-Commercial [id number] ANSI-Commercial [id number] ANSI-Commercial [id number] ANSI-Commercial [id number] ANSI-Commercial [id number] [facility] 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 ANSI-Commercial [id number] ANSI-Commercial [id number] ANSI-Commercial [id number] ANSI-Commercial [id number] ANSI-Commercial [id number] ANSI-Commercial [id number] [employer] [id number] Family Dependent [id number] [employer] [id number] [employer] [id number] Family Dependent [id number] [employer] [id number] Family Dependent [id number] [employer] Family Dependent [employer] PPO P [id number] S [id number] Surgeries/Procedures Procedure Description Date Indications Data Source(s) Radiography of sacrococcygeal spine (procedure) 2019 12:45:00 PM EDT [facility] Plain x-ray of pelvis and lower extremity (procedure) 01/26/2020 12:45:00 PM [facility] spine, combined anteroposterior and lateral (procedure) 01/26/2020 12:44:00 PM EDT [facility] PSYTX W PT 45 MINUTES 11/14/2019 12:00:00 AM EDT eCW1 ([facility]) Results ID Date Data Source [id number] 07/14/2020 12:00:00 AM [facility] Name Value Range Interpretation Code Description Data Susan rce(s) Supporting Document(s) Carestart Rapid COVID Antigen Test Positive [facility] This lab was reported by Jacklyn dolan. ID Date Data Source [id number] 06/22/2020 02:52:00 PM [facility] Patient Name: ZOYA WONG : 1990 Sex: F Pt Unit #: [id number] Location:[facility] Provider: Visit Date/Time: 06/22/20 Primary Insurance: [facility] Secondary Insurance: Self Pay Intake Intake Visit Reasons: Telemed Visit Allergies SEASONAL ALLERGIES Allergy (Intermediate, Unverified 01/26/20 11:13) plugged up nose, sneezing, sl throat swelling, eyes puffy Medications - Last Reconciled 06/22/20 by Karen Brady NP acetaminophen mg PO amoxicillin mg PO buspirone mg PO chlorhexidine gluconate 0.12% buccal clonazepam mg PO ibuprofen mg PO liothyronine 25 mcg PO QDAY 30 days lisdexamfetamine mg PO varenicline (Chantix Starting Month Box) PO PER PKG DIR venlafaxine mg PO Telephone visit Telephone/Virtual Visit Patient consented to consult via telephone or video: Yes Names of people present:: Zoya Karen Brady [facility] Medical History (Updated 06/22/20 @ 15:17 by Karen Brady NP) ADHD (attention deficit hyperactivity disorder) Bipolar II disorder Bulimia Hypothyroidism Polycystic ovaries Seasonal allergic rhinitis Surgical History (Updated 12/24/18 @ 11:53 by [email or web address] [place]) History of - surgery Family History Mother Hypertension Stroke Thyroid disease Father Diabetes Heart disease Brother No problems noted. Social History (Updated 01/26/20 @ 11:12 by Fely Rice) Does the Patient have a Healthcare Proxy: No Does Patient have a DNR?: No Does Patient have a Living Will?: No Smoking Status: Current every day smoker how long ago did patient quit smokin days ago HPI Additional HPI HPI Details: Zoya is called for her telemed visit today for her hypothyroid f/u. Her brother is POS for COVID. She did not wish to come into the office d/t recent exposure to him. She notes some increased fatigue and a lump in her throat. She has a known mass which was dx at [facility]. She was told that she could do elective surgery on this, however, she did not proceed at that time. She wonders if this is causing her fatigue or worsening thyroid symptoms. She also notes some dysphasia. She has not done her labs yet. Review of Systems Const All systems reviewed are unremarkable except as noted in HPI and below Reports as per HPI, Reports fatigue and Reports lethargy ENT Reports dysphagia GI Reports dysphagia Endo Reports fatigue and Reports other (lump in throat near thyroid. palpable. non-tender.) Assessment Plan Assessment Plan (1) Hypothyroidism: Status: Acute Code(s): E03.9 - Hypothyroidism, unspecified SNOMED Code(s): 21048114 Category: Medical Orders: Orders: CMP 2 Weeks LIPID PANEL 2 Weeks (2) Mass of neck: Status: Acute Code(s): R22.1 - Localized swelling, mass and lump, neck SNOMED Code(s): 809916093 Category: Medical Additional Comments Additional Comments: Difficult to assess today given we have no labs nor imaging from [facility]. She willcome in after her quarantine and complete her labs and sign a record release. Likely will need to see endocrinology for further evaluation of possible mass. She expresses understanding. Refills on her current medications are sent. She notes that she is due for some of her MH medications, however, she is advised to reach out to her providers for this. Telemed visit: 10 mins. Orders Other Medications: Refilled: liothyronine 25 mcg PO QDAY 30 days 30 tabs 6RF Discontinued: [Clonazepam] BID PRN FOR ANXIETY. #[id number] Discontinued Reason: None 0.5 mg PO BID PRN 14 tabs 0RF MDD 2 Instructions: Hypothyroidism (GEN) Coding Level of Care Code Telemed Visit (5-10 min) Diagnoses Hypothyroidism E03.9 Mass of neck R22.1 <Electronically signed by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
--- OUTSIDE RECORDS SUMMARY | 2020-07-19 13:20 | CCD | Continuity of Care Document ---
Author Author [facility] Organization Unknown Address [address] [place] [address] [place] [address] Phone [phone] Care Team Providers Care Rn Unit Manager Name Role Phone Manuel Yu Publi AUTM [phone] Problems Description No Information Available Social History [...]
[2020-07-19] MEDS ORDERED: BUSP15TA47 (13:25)
[2020-07-19] MEDS ORDERED: NITR100C2 (13:25)
[2020-07-19] MEDS ORDERED: CLON2TAB7 (13:25)
[2020-07-19] MEDS ORDERED: VENL37TA (13:25)
[2020-07-19] MEDS ORDERED: FLUC150T (13:25)
[2020-07-19 14:28] VITALS: O2SAT 99
[2020-07-19 14:35] LABS: BASO # 0.1 10^3/uL (0.0-0.2); BASO % 0.9 % (0.0-1.0); EOS # 0.3 10^3/uL (0.0-0.5); EOS % 2.8 % (0.0-3.0); HEMATOCRIT 44.1 % (36.0-47.0); HEMOGLOBIN 14.9 g/dl (12.0-15.5); LYMPH # 2.6 10^3/uL (1.5-5.0); LYMPH % 25.3 % (24.0-44.0); MEAN CORPUSCULAR HEMOGLOBIN 29.3 pg (27.0-33.0); MEAN CORPUSCULAR HGB CONC 33.8 g/dl (32.0-36.5); MEAN CORPUSCULAR VOLUME 86.6 fl (80.0-96.0); MONO # 1.1 10^3/uL (0.0-0.8); MONO % 10.8 % (0.0-5.0); NEUTROPHILS # 6.2 10^3/uL (1.5-8.5); NEUTROPHILS % 59.8 % (36.0-66.0); PLATELET COUNT, AUTOMATED 281 10^3/uL (150-450); RED BLOOD COUNT 5.09 10^6/uL (4.00-5.40); WHITE BLOOD COUNT 10.4 10^3/uL (4.0-10.0)
[2020-07-19 14:46] LABS: INR 1.05; PROTHROMBIN TIME 13.9 SECONDS (12.5-14.3)
[2020-07-19 14:47] LABS: PARTIAL THROMBOPLASTIN TIME 27.6 SECONDS (24.2-38.5)
--- OUTSIDE RECORDS SUMMARY | 2020-07-19 14:50 | CCD ---
Author Author [facility] Organization [facility] Address Unknown Phone Unavailable Care Team Providers Care Mentally Retarded Teacher Name Role Phone Caitlyn, A Karen [facility] Unavailable Unavailable Caitlyn, A Karen [facility] Unavailable Unavailable Caitlyn, A Karen [facility] Unavailable Unavailable Caitlyn, A Karen [facility] Unavailable Unavailable Caitlyn, A Karen [facility] Unavailable Unavailable Caitlyn, A Karen [facility] Unavailable Unavailable Caitlyn, A Karen [facility] Unavailable Unavailable Caitlyn, A Karen [facility] Unavailable Unavailable Caitlyn, A Karen [facility] Unavailable Unavailable Caitlyn, A Karen [facility] Unavailable Unavailable Caitlyn, A Karen [facility] Unavailable Unavailable Caitlyn, A Karen [facility] Unavailable Unavailable Caitlyn, A Karen [facility] Unavailable Unavailable Caitlyn, A Karen [facility] Unavailable Unavailable Caitlyn, A Kraen [facility] Unavailable Unavailable Caitlyn, A Karen [facility] Unavailable Unavailable Caitlyn, A Karen [facility] Unavailable Unavailable Caitlyn, A Karen [facility] Unavailable Unavailable Caitlyn, A Karen [facility] Unavailable Unavailable Caitlyn, A Karen [facility] Unavailable Unavailable Caitlyn, A Karen [facility] Unavailable Unavailable Caitlyn, A Karen [facility] Unavailable Unavailable Caitlyn, A Karen [facility] Unavailable Unavailable Caitlyn, A Karen [facility] Unavailable Unavailable Caitlyn, A Karen [facility] Unavailable Unavailable Caitlyn, A Karen [facility] Unavailable Unavailable Caitlyn, A Karen [facility] Unavailable Unavailable Caitlyn, A Karen [facility] Unavailable Unavailable Caitlyn, A Karen [facility] Unavailable Unavailable Caitlyn, A Karen [facility] Unavailable Unavailable Caitlyn, A Karen [facility] Unavailable Unavailable Caitlyn, A Karen [facility] Unavailable Unavailable Caitlyn, A Karen [facility] Unavailable Unavailable Caitlyn, A Karen [facility] Unavailable Unavailable Caitlyn, A Karen [facility] Unavailable Unavailable Caitlyn, A Karen [facility] Unavailable Unavailable Caitlyn, A Karen [facility] Unavailable Unavailable Caitlyn, A Karen [facility] Unavailable Unavailable Re-disclosure Warning The records that [...] is protected by Article 27-F of the [facility] Public Health law. If you continue you may have access to information: Regarding HIV / AIDS; Provided by facilities licensed or operated by the [facility] Office of Mental Health; or Provided by the [facility] Office for People With Developmental Disabilities. If such information is present, then the following [facility] mandated warning applies: This information has been [...] law may result in a fine or assisted sentence or both. A general authorization for the release of medical or other information is NOT sufficient authorization for further disc losure. Allergies and Adverse Reactions Type Description Substance Reaction Status Data Source(s ) Environmental Allergy SEASONAL ALLERGIES SEASONAL ALLERGIES plug ged up nose, sneezing, sl throat swelling, eyes puffy [place] [facility] Family History Family Member Name Family Member Gender Family Member Status Date o f Status Description Data Source(s) Unknown Condition [facility] Unknown Condition [facility] Unknown Condition [facility] Unknown Condition [facility] Unknown Condition [facility] Unknown Condition [facility] Unknown Unknown Problem [facility] ([facility]) Encounters Encounter Providers Location Date Indications Data Source(s ) Outpatient Attender: Karen Brady NPReferrer: Karen valladares [facility] 06/22/2020 03:10:00 PM EST - 06/22/2020 03:15:00 PM EST [facility] Outpatient Attender: Karen Brady [facility] 01/26/2020 12:03:00 PM EDT PAIN [facility] PAIN Outpatient Attender: Karen Brady NPReferrer: Karen valladares [facility] 01/26/2020 11:11:00 AM EDT - 01/26/2020 11:58:00 AM EDT [facility] Outpatient [address] [address] 12/24/2019 12:00:00 AM EDT eCW1 ([facility]) [facility] [address] [place] [address] 12/23/2019 12:00:00 AM EDT eCW1 ([facility]) [address] [address] 12/05/2019 12:00:00 AM EDT [facility] [address] [place] [address] 11/20/2019 12:00:00 AM EDT eCW1 ([facility]) [facility] [address] [place] [address] 11/17/2019 12:00:00 AM EDT eCW1 ([facility]) [address] [address] 11/14/2019 12:00:00 AM EDT eCW1 ([facility]) [facility] [address] [place] [address] 09/08/2019 12:00:00 AM EDT eCW1 ([facility]) [facility] [address] [place] [address] 08/04/2019 12:00:00 AM EST eCW1 ([facility]) [facility] [address] [place] [address] 08/04/2019 12:00:00 AM EST eCW1 ([facility]) [facility] [address] [place] [address] 07/09/2019 12:00:00 AM EST eCW1 ([facility]) [facility] [address] [place] [address] 06/16/2019 12:00:00 AM EST eCW1 ([facility]) [facility] [address] [place] [address] 06/06/2019 12:00:00 AM EST eCW1 ([facility]) [facility] [address] [place] [address] 06/04/2019 12:00:00 AM EST eCW1 ([facility]) [facility] [address] [place] [address] 05/26/2019 12:00:00 AM EST eCW1 ([facility]) [facility] [address] [place] [address] 05/23/2019 12:00:00 AM EST eCW1 ([facility]) [facility] [address] [place] [address] 05/22/2019 12:00:00 AM EST eCW1 ([facility]) [facility] [address] [facility] [address] [place] [address] 05/21/2019 12:00:00 AM EST eCW1 ([facility]) Medications Medication Brand Name Start Date Product [...] 02:55:22 PM EST 25 MCG active [facility] 25 mcg 2020 12:00:00 AM EST tablet 30 TAKE ONE TABLET BY MOUTH EVERY DAY TAKE ONE TABLET BY MOUTH EVERY DAY SOLD: 06/11/2020 [facility]ila liothyronine sodium 0.025 MG Oral Tablet Liothyronine Liothy ronine 06/08/2020 03:44:38 PM EST 25 MCG completed [facility] 2 mg 05/12/2020 12:00:00 AM EST tablet [...] pack 04/23/2020 03:52:10 PM EDT 0 active [facility] 50 mg 04/03/2020 12:00:00 AM EDT capsule [...] MOUTH THREE TIMES A DAY SOLD: 02/05/2020 [facility] Cyclobenzaprine hydrochloride 10 MG Oral Tablet Cyclobenzapr ine 01/30/2020 11:01:35 AM EDT 10 MG completed [facility] Cyclobenzaprine hydrochloride 10 MG Oral Tablet CYCLOBENZAPR INE HCL 01/30/2020 12:00:00 AM EDT tablet 15 TAKE ONE TABLET BY MOUTH THREE TIMES A DAY NEEDED FOR MUSCLE SPASM TAKE ONE TABLET BY MOUTH THREE TIMES A D AY NEEDED FOR MUSCLE SPASM SOLD: 01/30/2020 [facility] liothyronine sodium 0.025 MG Oral Tablet Liothyronine Liothy ronine 01/26/2020 12:05:03 PM EDT 25 MCG completed [facility] Cyclobenzaprine hydrochloride 10 MG Oral Tablet Cyclobenzapr ine 01/26/2020 11:51:18 AM EDT 10 MG active [facility] Cyclobenzaprine hydrochloride 10 MG Oral Tablet Cyclobenzapr ine 01/26/2020 11:51:18 AM EDT 10 MG completed [facility] Ibuprofen 800 MG Oral Tablet Ibuprofen 01/26/2020 11:20:37 AM EDT active [facility] Ibuprofen 800 MG Oral Tablet Ibuprofen 01/26/2020 11:20:37 AM EDT active [facility] Acetaminophen 01/26/2020 [facility]2020 11:20[facility]17 [facility] chlorhexidine gluconate 1.2 MG/ML Mouthwash Chlorhexid ine Gluconate Chlorhexidine Gluconate 01/26/2020 11:17:23 AM EDT active [facility] chlorhexidine gluconate 1.2 MG/ML Mouthwash Chlorhexid ine Gluconate Chlorhexidine Gluconate 01/26/2020 11:17:23 AM EDT active [facility] Amoxicillin 500 MG Oral Tablet Amoxicillin 01/26/2020 11:17:10 AM EDT active [facility] Amoxicillin 500 MG Oral Tablet Amoxicillin 01/26/2020 11:17:10 AM EDT [facility] Buspirone 01/26/2020 11:16:42 AM EDT active [facility] Buspirone 01/26/2020 11:16:42 AM EDT [facility] Clonazepam 2 MG Oral Tablet Clonazepam 01/26/2020 11:16:18 AM EDT active [facility] Clonazepam 2 MG Oral Tablet Clonazepam 01/26/2020 11:16:18 AM EDT active [facility] lisdexamfetamine dimesylate 50 MG Oral C apsule Lisdexamfetamine (Vyvanse) 50 mg capsule Lisdexamfetamine (Vyvanse) 50 mg capsule 01/26/2020 11:15:22 AM EDT active [facility] lisdexamfetamine dimesylate 50 MG Oral C apsule Lisdexamfetamine (Vyvanse) 50 mg capsule Lisdexamfetamine (Vyvanse) 50 mg capsule 01/26/2020 11:15:22 AM EDT active [facility] venlafaxine 37.5 MG Oral Tablet Venlafaxine Venlafaxine 01/26/2020 11:13:51 AM EDT active [facility] venlafaxine 37.5 MG Oral Tablet Venlafaxine Venlafaxine 01/26/2020 11:13:51 AM EDT active [facility] Cyclobenzaprine hydrochloride 10 MG Oral Tablet CYCLOBENZAPR [...] 12:00:00 AM EDT active 1 tablet eCW1 ([facility]) Chantix Continuing Month Bartolome 1 MG Chantix Continuing Month P ak 1 MG 11/20/2019 12:00:00 AM EDT 1.0 {tablet} active Chantix Continuing Month Bartolome 1 MG eCW1 ([facility]) Dextroamphetamine Sulfate 15 MG Extended Release Oral Capsule [Dexedrine] Dexedrine 15 MG Dexedrine 15 MG 08/04/2019 12:00:00 AM EST active 2 capsule eCW1 ([facility]) Dextroamphetamine Sulfate 15 MG Extended Release Oral Capsule [Dexedrine] Dexedrine 15 MG Dexedrine 15 MG 08/04/2019 12:00:00 AM EST 2.0 {capsul e} active Dexedrine 15 MG eCW1 ([facility]) Chantix Continuing Month Bartolome 1 MG Chantix Continuing Month P ak 1 MG 06/18/2019 12:00:00 AM EST active 1 tablet eCW1 ([facility]) Chantix Continuing Month Bartolome 1 MG Chantix Continuing Month P ak 1 MG 06/18/2019 12:00:00 AM EST 1.0 {tablet} active Chantix Continuing Month Bartolome 1 MG eCW1 ([facility]) Dextroamphetamine Sulfate 15 MG Extended Release Oral Capsule [Dexedrine] Dexedrine 15 MG Dexedrine 15 MG 05/22/2019 12:00:00 AM EST active 2 capsule eCW1 ([facility]) Norgestimate-Ethinyl Estradiol (Sprintec 28 Day Tablet) 1 EA CH tablet 06/24/2018 01:24:00 PM EST 1 EACH completed [facility] Norgestimate-Ethinyl Estradiol (Sprintec 28 Day Tablet) 1 EA CH tablet 06/24/2018 01:24:00 PM EST 1 EACH completed [facility] lisdexamfetamine dimesylate 40 MG Oral C apsule Lisdexamfetamine (Vyvanse) 40 MG capsule Lisdexamfetamine (Vyvanse) 40 MG capsule 04/10/2018 02:59:00 PM EDT 40 MG completed [facility] Clonazepam 0.5 MG Oral Tablet Clonazepam 04/10/2018 02:59:00 PM EDT 0.5 MG completed [facility] lisdexamfetamine dimesylate 40 MG Oral C apsule Lisdexamfetamine (Vyvanse) 40 MG capsule Lisdexamfetamine (Vyvanse) 40 MG capsule 04/10/2018 02:59:00 PM EDT 40 MG completed [facility] Bupropion Hcl (Smoking Deter) 03/05/2018 11:33:00 AM EDT 150 MG completed [facility] Bupropion Hcl (Smoking Deter) 03/05/2018 11:33:00 AM EDT 150 MG completed [facility] Omeprazole 40 MG Delayed Release Oral Capsule Omeprazole 01/10/2018 04:15:00 PM EDT 40 MG completed [facility] aripiprazole 2 MG Oral Tablet Aripiprazole (Abilify*) 2 MG tablet Aripiprazole (Abilify*) 2 MG tablet 01/10/2018 04:15:00 PM EDT 2 MG completed [facility] aripiprazole 2 MG Oral Tablet Aripiprazole (Abilify*) 2 MG tablet Aripiprazole (Abilify*) 2 MG tablet 01/10/2018 04:15:00 PM EDT 2 MG completed [facility] Omeprazole 40 MG Delayed Release Oral Capsule Omeprazole 01/10/2018 04:15:00 PM EDT 40 MG completed [facility] liothyronine sodium 0.025 MG Oral Tablet Liothyronine (Cytomel) 25 MCG tablet Liothyronine (Cytomel) 25 MCG tablet 12/25/2017 10:16:00 AM EDT 25 MCG completed [facility] liothyronine sodium 0.025 MG Oral Tablet Liothyronine (Cytomel) 25 MCG tablet Liothyronine (Cytomel) 25 MCG tablet 12/25/2017 10:16:00 AM EDT 25 MCG completed [facility] Sertraline 100 MG Oral Tablet [Zoloft] Sertraline (Zol oft) 100 MG tablet Sertraline (Zoloft) 100 MG tablet 11/05/2017 01:17:00 PM EDT 100 MG completed [facility] Sertraline 25 MG Oral Tablet [Zoloft] Sertraline (Zolo ft) 25 MG tablet Sertraline (Zoloft) 25 MG tablet 11/05/2017 01:17:00 PM EDT 25 MG completed [facility] Sertraline 100 MG Oral Tablet [Zoloft] Sertraline (Zol oft) 100 MG tablet Sertraline (Zoloft) 100 MG tablet 11/05/2017 01:17:00 PM EDT 100 MG completed [facility] Sertraline 25 MG Oral Tablet [Zoloft] Sertraline (Zolo ft) 25 MG tablet Sertraline (Zoloft) 25 MG tablet 11/05/2017 01:17:00 PM EDT 25 MG completed [facility] varenicline 1 MG Oral Tablet Varenicline (Chantix) 1 M G tablet Varenicline (Chantix) 1 MG tablet 07/23/2017 11:32:00 AM EST [facility] varenicline 1 MG Oral Tablet Varenicline (Chantix) 1 M G tablet Varenicline (Chantix) 1 MG tablet 07/23/2017 11:32:00 AM EST 1 MG c [facility] Omeprazole 40 MG Delayed Release Oral Capsule Omeprazole 02/22/2017 09:07:00 AM EDT 40 MG completed [facility] Omeprazole 40 MG Delayed Release Oral Capsule Omeprazole 02/22/2017 09:07:00 AM EDT 40 MG completed [facility] Insurance Providers Payer name Policy type / Coverage type Policy ID Covered green party ID Covered green party's relationship to murphy Policy Murphy Plan Information LUIGI [id number] SP [id number] 500 LUIGI [id number] SP [id number] 500 [place] [id number] S [id number] LUIGI I [id number] [facility] [id number] 500 ANSI-Commercial [id number] ANSI-Commercial [id number] ANSI-Commercial [id number] ANSI-Commercial [id number] ANSI-Commercial [id number] ANSI-Commercial [id number] ANSI-Commercial [id number] ANSI-Commercial [id number] ANSI-Commercial [id number] ANSI-Commercial [id number] ANSI-Commercial [id number] ANSI-Commercial [id number] ANSI-Commercial [id number] ANSI-Commercial [id number] [facility] [id number] 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 [id number] ANSI-Commercial [id number] ANSI-Commercial [id number] ANSI-Commercial [id number] ANSI-Commercial [id number] ANSI-Commercial [id number] ANSI-Commercial [id number] [employer] [id number] Family Dependent [id number] [employer] [id number] [id number] [employer] [id number] Family Dependent [id number] [employer] [id number] Family Dependent [id number] [employer] Family Dependent [employer] PPO P [id number] S [id number] Surgeries/Procedures Procedure Description Date Indications Data Source(s) Radiography of sacrococcygeal spine (procedure) 2019 12:45:00 PM EDT [facility] Plain x-ray of pelvis and lower extremity (procedure) 01/26/2020 12:45:00 PM [facility]T [facility] of lumbar spine, combined anteroposterior and lateral (procedure) 01/26/2020 12:44:00 PM EDT [facility] PSYTX W PT 45 MINUTES 11/14/2019 12:00:00 AM EDT eCW1 ([facility]) Results ID Date Data Source [id number] 07/14/2020 12:00:00 AM [facility] Name Value Range Interpretation Code Description Data Susan rce(s) Supporting Document(s) Carestart Rapid COVID Antigen Test Positive [facility] This lab was reported by Jacklyn dolan. ID Date Data Source [id number] 06/22/2020 02:52:[address] [facility] Patient Name: ZOYA WONG : 1990 Sex: F Pt Unit #: [id number] Location:[facility] Provider: Visit Date/Time: 06/22/20 Primary Insurance: [facility] Secondary Insurance: Self Pay Intake Intake Visit [...] Names of people present:: Zoya Karen Brady [facility] Medical History (Updated 06/22/20 @ 15:17 by Karen Brady NP) ADHD (attention deficit hyperactivity disorder) Bipolar II disorder Bulimia Hypothyroidism Polycystic ovaries Seasonal allergic rhinitis Surgical History (Updated 12/24/18 @ 11:53 by [employer] [place]) History of - surgery Family History Mother [...] a known mass which was dx at [facility]. She was told that she could do [...] Code(s): E03.9 - Hypothyroidism, unspecified SNOMED Code(s): 14007010 Category: Medical Orders: Orders: CMP 2 Weeks LIPID PANEL 2 Weeks (2) Mass of neck: Status: Acute Code(s): R22.1 - Localized swelling, mass and lump, neck SNOMED Code(s): 614988302 Category: Medical Additional Comments Additional Comments: Difficult to assess today given we have no labs nor imaging from [facility]. She willcome in after her quarantine and [...] 6RF Discontinued: [Clonazepam] BID PRN FOR ANXIETY. #[id number] Discontinued Reason: None 0.5 mg PO BID PRN 14 tabs 0RF MDD 2 Instructions: Hypothyroidism (GEN) Coding Level of Care Code Telemed Visit (5-10 min) Diagnoses Hypothyroidism E03.9 Mass of neck R22.1 <Electronically signed by Karen Brady [facility]> 06/22/20 1519 Name Value Range Interpretation Code Description Data Susan rce(s) Supporting Document(s) ID Date Data Source [id number] 04/20/2020 12:00:00 AM EDT [facility] Name Value Range Interpretation Code Description Data Susan rce(s) Supporting Document(s) SARS coronavirus 2 Ag [facility] This lab was ordered by [facility] and reported by [facility] ID Date Data Source [id number] 01/26/2020 01:22:00 PM EDT [facility] [address] [place] [address] [phone] NAME SEX PT STATUS ACCOUNT NUMBER ZOYA WONG REG REF [id number] ORDERING PHYSICIAN LOCATION MEDICAL RECORD NO. Karen ARTP Caitlyn [facility] [id number] ATTENDING PHYSICIAN DATE OF DATE OF EXAM/TIME [...] rce(s) Supporting Document(s) ID Date Data Source [id number] 01/26/2020 01:17:00 PM EDT [facility] [address] [place], [place] [address] [phone] NAME SEX PT STATUS ACCOUNT NUMBER ZOYA WONG REG REF [id number] ORDERING PHYSICIAN LOCATION MEDICAL RECORD NO. Karen Brady RAD [id number] ATTENDING PHYSICIAN DATE OF DATE OF EXAM/TIME [...] rce(s) Supporting Document(s) ID Date Data Source [id number] 01/26/2020 01:17:00 PM EDT [facility] [address] [place] [address] [phone] NAME SEX PT STATUS ACCOUNT NUMBER ZOYA WONG REG REF [id number] ORDERING PHYSICIAN LOCATION MEDICAL RECORD NO. Karen LUIS Brady RAD [id number] ATTENDING PHYSICIAN DATE OF DATE OF EXAM/TIME CaitlynKaren marino [facility] 1990 01/26/20 / 1245 TYPE / EXAM [...] Trans Dt/Tm: Trans by: DT Prt Dt/Tm: [phone]: Total DLP = 0.00 mGy-cm Fluoroscopy Time (in secs): Name Value Range Interpretation Code Description Data Susan rce(s) Supporting Document(s) ID Date Data Source [id number] 01/26/2020 11:12:00 AM EDT [facility] Patient Name: ZOYA WONG : 1990 Sex: F Pt Unit #: [id number] Location:[facility] Provider: Visit Date/Time: 01/26/20 Primary Insurance: [facility] Secondary Insurance: Self Pay Intake Vital Signs [...] x-ray done. Comes from Dr. Yates and [facility]. Needs muscle relaxer and pain medication [...] Screening Screening Have you traveled outside of [facility] or [facility] in the last 14 days.: No Has patient experienced coronavirus symptoms: No PFSH Medical History (Updated 01/26/20 @ 12:44 by Karen Brady NP) ADHD (attention deficit hyperactivity disorder) Bipolar II disorder Bulimia Hypothyroidism Polycystic ovaries Seasonal allergic rhinitis Surgical History (Updated 12/24/18 @ 11:53 by [employer] [place]) History of - surgery Family History Mother [...] HPI and below Reports as per HPI [facility] Reports back pain, Reports arthralgias (bilateral hips) and Reports radiating pain into limb Details: She has been taking ibuprofen, Tylenol, Aleve, as well as ice to her back. She notes that these are not "touching the pain" Exam Const General: cooperative and healthy appearing Nutritional Appearance: average body habitus and well nourished Orientation: alert, awake and oriented x3 [facility] Cervical Spine: normal cervical lordosis and cervical [...] of thyroid, unspecified Plan - Karen Brady [facility]: Labs ordered. Takes cytomel. Orders: Orders: CMP Today (2) Low back pain: Status: Acute Comment: I will order xrays. She will see chiropractor tomorrow. Discussed neurosurgery. She is willing ifchiropractic does not improve it. Cyclobenzaprine ordered TID. 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 Orders Other Medications: New: cyclobenzaprine [...] PM EDT Former smoker completed Former smoker [facility] [facility] 01/26/2020 11:12:39 AM EDT Former smoker completed Former smoker [facility] 01/26/2020 11:12:39 AM EDT Former smoker completed Former smoker [facility] Smoking 01/26/2020 11:12:00 AM EDT Former smoker completed Former smoker [facility] Patient Treatment Plan of Care Planned Activity Planned Date Details Description Data Source (s) Chantix Continuing Month [place] 1 MG 11/20/2019 12:00:00 AM EDT eCW1 ([facility]) Chantix Continuing Month Bartolome 1 MG 11/20/2019 12:00:00 AM EDT eCW1 ([facility]) Dextroamphetamine Sulfate 15 MG Extended Release Oral Capsule [Dexedrine] 08/04/2019 12:00:00 AM EST eCW1 ([facility]) Chantix Continuing Month [place]olome 1 MG 06/18/2019 12:00:00 AM EST eCW1 ([facility]) Dextroamphetamine Sulfate 15 MG Extended Release Oral Capsule [Dexedrine] 05/22/2019 12:00:00 AM EST eCW1 ([facility])
[2020-07-19 15:10] LABS: ALBUMIN 3.9 GM/DL (3.2-5.2); ALT/SGPT 26 U/L (12-78); BILIRUBIN,DIRECT 0.2 MG/DL (0.0-0.2); BILIRUBIN,TOTAL 0.9 MG/DL (0.2-1.0); BLOOD UREA NITROGEN 8 MG/DL (7-18); CALCIUM LEVEL 9.4 MG/DL (8.5-10.1); CARBON DIOXIDE LEVEL 23 MEQ/L (21-32); CHLORIDE LEVEL 108 MEQ/L (98-107); CK-MB VALUE MASS < 1.0 NG/ML (<3.6); CPK CREATINE PHOSPHOKINASE 54 U/L (26-192); GLOMERULAR FILTRATION RATE > 60.0 (>60); GLUCOSE, FASTING 93 MG/DL (70-100); MB/CK RELATIVE INDEX 1.85 (< OR =4); NT-PRO BNP 15 PG/ML (<125); POTASSIUM SERUM 4.4 MEQ/L (3.5-5.1); SODIUM LEVEL 138 MEQ/L (136-145); TOTAL PROTEIN 7.9 GM/DL (6.4-8.2); TROPONIN I < 0.02 NG/ML (< 0.10)
[2020-07-19] MEDS ORDERED: ISOVUE-370 76% 100ML VIAL As Ordered ONE (15:15)
--- NOTE | 2020-07-19 15:51 | REP ---
INDICATION: covid positiv leg pain r/o DVT COMPARISON: None. TECHNIQUE: Real time compression and duplex Doppler interrogation of the bilateral lower extremity deep venous system is performed. FINDINGS: Bilaterally, the common femoral, superficial femoral and popliteal veins are fully compressible with transducer pressure and demonstrate normal spontaneous and phasic flow, without evidence of deep venous thrombosis. IMPRESSION: No evidence of deep venous thrombosis of the bilateral lower extremity femoral popliteal venous system. <Electronically signed by Tone Castro > 07/19/20 0955
--- NOTE | 2020-07-19 16:23 | REP ---
INDICATION: COVID pos, pleuritic L chest pain. COMPARISON: None. TECHNIQUE: CT angiogram chest performed following the intravenous administration of 100 cc of Isovue 370. Sagittal and coronal reconstruction images are performed. FINDINGS: Lungs: Clear, no infiltrate or nodule. Mediastinum: No adenopathy. Pulmonary arteries: No evidence of pulmonary embolism. Lina: No adenopathy. Axilla: No adenopathy. Pleura: No effusion. Heart: Not enlarged. Thoracic aorta: No aneurysm or dissection. Upper abdominal structures: Unremarkable. Visualized osseous structures: Unremarkable. IMPRESSION: No CT evidence of pulmonary embolism.No infiltrate seen. <Electronically signed by Tone Castro > 07/19/20 0204
[2020-07-19] MEDS ORDERED: dexameTHASONE 20MG/5ML VIAL (J1100 PER 1MG) IV ONE (17:00)
[2020-07-19 17:30] VITALS: BP 113/80
--- NOTE | 2020-07-19 20:00 | ECGEPIP ---
[facility] - ED Test Date: 2020-07-19 Pat Name: ZOYA WONG Department: Room: - Gender: Female Insole Filler: lorna : 1990 Requested By: TONY Thompson Order Number: [id number] Reading MD: Lisbet Foster Measurements Intervals [place] Rate: 92 P: 46 UT: 122 QRS: 24 QRSD: 99 T: 35 QT: 349 QTc: 432 Interpretive Statements SINUS RHYTHM WITH SINUS ARRHYTHMIA NO PRIOR Electronically Signed on 07-19-2020 20:00:34 EST by Lisbet Foster
== END 2020-07-19 17:50 | disposition home or self-care (01) ==
LOC: M ED 13:13
DX: R07.9 Chest pain, unspecified (principal); U07.1 COVID-19; E03.9 Hypothyroidism, unspecified; F31.9 Bipolar disorder, unspecified; F41.9 Anxiety disorder, unspecified; F90.9 Attention-deficit hyperactivity disorder, unspecified type; F17.200 Nicotine dependence, unspecified, uncomplicated
CPT/HCPCS: 71275; 80048; 80076; 82550; 82553; 83880; 84443; 85025; 85610; 85730; 93005; 93041; 93970; 94760; 96374; 99285; J1100; Q9967

== ENCOUNTER 2021-09-20 19:18 | Emergency (ER) | payer OTHER ==
[~2021-09-20] VITALS: Ht 172.7 cm; Wt 102.0 kg
[~2021-09-20 19:18] MED LIST changes: +BUSP15TA47; +CLON2TAB7; +FLUC150T9; +NITR100C2; +VENL37TA
[2021-09-20 21:08] LABS: HEMATOCRIT 40.2 % (36.0-47.0); HEMOGLOBIN 13.6 g/dl (12.0-15.5); MEAN CORPUSCULAR HEMOGLOBIN 29.4 pg (27.0-33.0); MEAN CORPUSCULAR HGB CONC 33.8 g/dl (32.0-36.5); MEAN CORPUSCULAR VOLUME 86.8 fl (80.0-96.0); PLATELET COUNT, AUTOMATED 261 10^3/uL (150-450); RED BLOOD COUNT 4.63 10^6/uL (4.00-5.40); WHITE BLOOD COUNT 9.2 10^3/uL (4.0-10.0)
[2021-09-20 21:29] LABS: HCG, SERUM QUALITATIVE NEGATIVE (NEGATIVE)
[2021-09-20 21:31] LABS: AMPHETAMINES LEVEL URINE NEGATIVE (NEGATIVE); BARBITURATES URINE NEGATIVE (NEGATIVE); BENZODIAZEPINES URINE NEGATIVE (NEGATIVE); CANNABINOIDS URINE POSITIVE (NEGATIVE); COCAINE METABOLITE URINE NEGATIVE (NEGATIVE); METHADONE URINE NEGATIVE (NEGATIVE); OPIATES URINE NEGATIVE (NEGATIVE); PHENCYCLIDINE URINE NEGATIVE (NEGATIVE)
[2021-09-20 21:35] LABS: RSV AMPLIFICATION NEGATIVE (NEGATIVE)
[2021-09-20 21:37] LABS: ACETAMINOPHEN LEVEL < 2.0 UG/ML (10.0-30.0); ALBUMIN 3.9 GM/DL (3.2-5.2); ALT/SGPT 24 U/L (12-78); BILIRUBIN,DIRECT 0.1 MG/DL (0.0-0.2); BILIRUBIN,TOTAL 0.3 MG/DL (0.2-1.0); BLOOD UREA NITROGEN 8 MG/DL (7-18); CALCIUM LEVEL 8.8 MG/DL (8.5-10.1); CARBON DIOXIDE LEVEL 30 MEQ/L (21-32); CHLORIDE LEVEL 106 MEQ/L (98-107); CREATININE FOR GFR 0.71 MG/DL (0.55-1.30); ETHYL ALCOHOL (ETHANOL) < 0.003 % (0.000-0.010); GLOMERULAR FILTRATION RATE > 60.0 (>60); GLUCOSE, FASTING 100 MG/DL (70-100); POTASSIUM SERUM 3.6 MEQ/L (3.5-5.1); SALICYLATE LEVEL < 1.7 MG/DL (5.0-30.0); SODIUM LEVEL 141 MEQ/L (136-145); TOTAL PROTEIN 7.6 GM/DL (6.4-8.2)
[2021-09-21] MEDS ORDERED: LIOT25TA8 PO (00:35)
[2021-09-21] MEDS ORDERED: VARE1TAB2 PO (00:35)
[2021-09-21] MEDS ORDERED: VENL150C43 PO (00:35)
[2021-09-21] MEDS ORDERED: VENL75CA2 PO (00:35)
[2021-09-21] MEDS ORDERED: ABIL1TAB11 PO (00:35)
[2021-09-21] MEDS ORDERED: PROP10TA56 PO (00:35)
[2021-09-21] MEDS ORDERED: CLON0.5T2 PO (00:35)
[2021-09-21] MEDS ORDERED: HOME MED LIST COMPLETE! XX SCH (00:40)
[2021-09-21 09:12] VITALS: BP 126/82
== END 2021-09-21 09:18 ==
LOC: M ED 19:18
DX: R45.851 Suicidal ideations (principal); T42.72XA Poisoning by unspecified antiepileptic and sedative-hypnotic drugs, intentional self-harm, initial encounter; Y92.89 Other specified places as the place of occurrence of the external cause; F33.9 Major depressive disorder, recurrent, unspecified; F41.9 Anxiety disorder, unspecified; F90.9 Attention-deficit hyperactivity disorder, unspecified type; F50.2 Bulimia nervosa; J30.2 Other seasonal allergic rhinitis; Z79.899 Other long term (current) drug therapy; F17.210 Nicotine dependence, cigarettes, uncomplicated

== ENCOUNTER 2022-07-02 14:21 | Emergency (ER) | payer MEDICAID, OTHER, SELFPAY ==
[~2022-07-02] VITALS: Ht 172.7 cm; Wt 123.9 kg
[~2022-07-02 14:21] MED LIST changes: +ABIL1TAB11 PO; +CLON0.5T2 PO; +LIOT25TA8 PO; +PROP10TA56 PO; +VARE1TAB2 PO; +VENL150C43 PO; +VENL75CA2 PO
[2022-07-02] MEDS ORDERED: HYDR-3363 (14:34)
[2022-07-02] MEDS ORDERED: VYVA40CA3 (14:34)
[2022-07-02] MEDS ORDERED: METF750T36 (14:36)
[2022-07-02 16:59] VITALS: BP 135/93
== END 2022-07-02 17:06 | disposition home or self-care (01) ==
LOC: M ED 14:21
DX: R09.1 Pleurisy (principal); B34.9 Viral infection, unspecified; Z20.822 Contact with and (suspected) exposure to COVID-19; J30.2 Other seasonal allergic rhinitis; Z79.899 Other long term (current) drug therapy

== ENCOUNTER 2023-04-23 17:31 | Emergency (ER) | payer MEDICAID, OTHER ==
[~2023-04-23] VITALS: Ht 172.7 cm; Wt 125.6 kg
[~2023-04-23 17:31] MED LIST changes: +HYDR-3363; +METF750T36
[2023-04-23] MEDS ORDERED: LIDOCAINE W/EPINEPHRINE 1% 20ML VIAL SC ONE (21:35)
[2023-04-23] MEDS ORDERED: NEOSPORIN OINT 0.9 GM PKT TOP ONE (21:35)
[2023-04-23] MEDS ORDERED: CEPHALEXIN 500 MG CAP PO ONE (21:35)
[2023-04-23] MEDS ORDERED: BACI500O8 TOP (22:19)
[2023-04-23] MEDS ORDERED: CEPH500C PO (22:19)
[2023-04-23 22:26] VITALS: BP 126/73; TEMP 98; O2SAT 99
== END 2023-04-23 22:27 | disposition home or self-care (01) ==
LOC: M ED 17:31
DX: S61.512A Laceration without foreign body of left wrist, initial encounter (principal); W25.XXXA Contact with sharp glass, initial encounter; Y92.096 Garden or yard of other non-institutional residence as the place of occurrence of the external cause; Y93.89 Activity, other specified; Y99.8 Other external cause status; F90.9 Attention-deficit hyperactivity disorder, unspecified type; F99 Mental disorder, not otherwise specified; J30.2 Other seasonal allergic rhinitis; Z79.899 Other long term (current) drug therapy; Z79.84 Long term (current) use of oral hypoglycemic drugs

== ENCOUNTER → 2023-05-03 | Outpatient (CLI) | payer OTHER ==
[~2023-05-03] MED LIST changes: +BACI500O8 TOP; +CEPH500C PO
[2023-05-03 09:39] LABS: HEMATOCRIT 39.8 % (36.0-47.0); HEMOGLOBIN 13.4 g/dl (12.0-15.5); MEAN CORPUSCULAR HGB CONC 33.7 g/dl (32.0-36.5); MEAN CORPUSCULAR VOLUME 89.2 fl (80.0-96.0); PLATELET COUNT, AUTOMATED 265 10^3/uL (150-450); RED BLOOD COUNT 4.46 10^6/uL (4.00-5.40); WHITE BLOOD COUNT 9.7 10^3/uL (4.0-10.0)
[2023-05-03 09:50] LABS: HEMOGLOBIN A1c 4.9 % (4.0-6.0)
[2023-05-03 10:10] LABS: ALBUMIN 3.5 G/DL (3.2-5.2); ALKALINE PHOSPHATASE 38 U/L (46-116); ALT/SGPT 20 U/L (7.0-40); AST/SGOT 12 U/L (<34); BILIRUBIN,TOTAL 0.6 MG/DL (0.3-1.2); BLOOD UREA NITROGEN 7 MG/DL (9-23); CARBON DIOXIDE LEVEL 23 MMOL/L (20-31); CHLORIDE LEVEL 106 MMOL/L (98-107); CREATININE FOR GFR 0.44 MG/DL (0.55-1.30); GLOMERULAR FILTRATION RATE > 60.0 (>60); GLUCOSE, FASTING 109 MG/DL (60-100); POTASSIUM SERUM 4.1 MMOL/L (3.5-5.1); SODIUM LEVEL 139 MMOL/L (136-145)
[2023-05-03 10:13] LABS: FREE T4 0.71 NG/DL (0.89-1.76)
[2023-05-03 10:14] LABS: THYROID STIMULATING HORMONE 1.305 uIU/ML (0.55-4.78)
[2023-05-03 10:17] LABS: FERRITIN 26.2 NG/ML (7.3-270.7)
[2023-05-03 10:20] LABS: FOLATE 11.29 NG/ML (>5.4)
[2023-05-03 10:21] LABS: VITAMIN B12 LEVEL 472 PG/ML (211-911)
[2023-05-03 10:47] LABS: HEPATITIS C VIRUS ABY INDEX 0.04 INDEX (<0.8)
[2023-05-03 10:48] LABS: HEPATITIS B CORE ANTIBODY IGM NEGATIVE (NEGATIVE)
== END ==
LOC: M LAB 08:06
DX: F41.1 Generalized anxiety disorder (principal); R63.5 Abnormal weight gain; E03.9 Hypothyroidism, unspecified; R53.83 Other fatigue; E63.9 Nutritional deficiency, unspecified; D64.9 Anemia, unspecified; E28.2 Polycystic ovarian syndrome

== ENCOUNTER → 2023-05-03 | Outpatient (CLI) | payer OTHER ==
[2023-05-03 09:41] LABS: BASO # 0.1 10^3/uL (0.0-0.2); EOS # 0.5 10^3/uL (0.0-0.5); EOS % 5.2 % (0.0-3.0); HEMATOCRIT 39.9 % (36.0-47.0); HEMOGLOBIN 13.4 g/dl (12.0-15.5); LYMPH # 2.1 10^3/uL (1.5-5.0); LYMPH % 21.8 % (24.0-44.0); MEAN CORPUSCULAR HEMOGLOBIN 29.7 pg (27.0-33.0); MEAN CORPUSCULAR HGB CONC 33.6 g/dl (32.0-36.5); MEAN CORPUSCULAR VOLUME 88.5 fl (80.0-96.0); MONO # 0.9 10^3/uL (0.0-0.8); MONO % 9.6 % (2.0-8.0); NEUTROPHILS # 5.9 10^3/uL (1.5-8.5); PLATELET COUNT, AUTOMATED 284 10^3/uL (150-450); RED BLOOD COUNT 4.51 10^6/uL (4.00-5.40); WHITE BLOOD COUNT 9.5 10^3/uL (4.0-10.0)
[2023-05-03 09:50] LABS: HEMOGLOBIN A1c 4.9 % (4.0-6.0)
[2023-05-03 10:10] LABS: LIPASE 33 U/L (12-53)
[2023-05-03 10:11] LABS: FREE T4 0.69 NG/DL (0.89-1.76); THYROID STIMULATING HORMONE 1.264 uIU/ML (0.55-4.78)
[2023-05-03 10:12] LABS: ALBUMIN 3.5 G/DL (3.2-5.2); ALKALINE PHOSPHATASE 38 U/L (46-116); ALT/SGPT 20 U/L (7.0-40); AST/SGOT 12 U/L (<34); BILIRUBIN,TOTAL 0.6 MG/DL (0.3-1.2); BLOOD UREA NITROGEN 6 MG/DL (9-23); CALCIUM LEVEL 8.7 MG/DL (8.5-10.1); CARBON DIOXIDE LEVEL 21 MMOL/L (20-31); CHLORIDE LEVEL 106 MMOL/L (98-107); CHOLESTEROL LEVEL 150 MG/DL (<200); CHOLESTEROL RISK RATIO 3.67 (<5); CREATININE FOR GFR 0.43 MG/DL (0.55-1.30); GLOMERULAR FILTRATION RATE > 60.0 (>60); GLUCOSE, FASTING 109 MG/DL (60-100); HDL CHOLESTEROL 40.8 MG/DL (>40); LDL CHOLESTEROL 93.8 MG/DL (<100); NON-HDL-C 109.2 MG/DL; POTASSIUM SERUM 4.2 MMOL/L (3.5-5.1); SODIUM LEVEL 137 MMOL/L (136-145); TRIGLYCERIDES LEVEL 77 MG/DL (<150)
== END ==
LOC: M LAB 08:01
PROVIDERS: ATTEND Nurse Practitioner Family
DX: E03.9 Hypothyroidism, unspecified (principal); R10.84 Generalized abdominal pain; Z13.220 Encounter for screening for lipoid disorders; E28.2 Polycystic ovarian syndrome; F43.10 Post-traumatic stress disorder, unspecified

== ENCOUNTER → 2023-05-22 | Outpatient (CLI) | payer OTHER ==
[2023-05-22 16:03] LABS: HEMOGLOBIN 12.8 g/dl (12.0-15.5); MEAN CORPUSCULAR HEMOGLOBIN 29.4 pg (27.0-33.0); MEAN CORPUSCULAR HGB CONC 32.8 g/dl (32.0-36.5); MEAN CORPUSCULAR VOLUME 89.7 fl (80.0-96.0); PLATELET COUNT, AUTOMATED 299 10^3/uL (150-450); RED BLOOD COUNT 4.35 10^6/uL (4.00-5.40); WHITE BLOOD COUNT 12.8 10^3/uL (4.0-10.0)
[2023-05-22 16:32] LABS: HIV 1&2 SCREEN NEGATIVE (NEGATIVE)
[2023-05-22 16:40] LABS: HEPATITIS C VIRUS ABY INDEX 0.05 INDEX (<0.8)
[2023-05-22 17:27] LABS: CHLAMYDIA DNA AMPLIFICATION NEGATIVE (NEGATIVE); GC DNA AMPLIFICATION NEGATIVE (NEGATIVE)
== END ==
LOC: M PLALAB 11:58
PROVIDERS: ATTEND Specialist
DX: Z34.81 Encounter for supervision of other normal pregnancy, first trimester (principal)

== ENCOUNTER → 2023-06-06 | Outpatient (REF) | payer OTHER | LOC: M SFHCWAGY 16:57 | PROVIDERS: ATTEND Specialist | DX: Z34.81 Encounter for supervision of other normal pregnancy, first trimester (principal) ==

== ENCOUNTER → 2023-06-18 | Outpatient (CLI) | payer OTHER | LOC: M PLALAB 10:23 | PROVIDERS: ATTEND Specialist | DX: Z34.91 Encounter for supervision of normal pregnancy, unspecified, first trimester (principal) ==

== ENCOUNTER → 2023-07-03 | Outpatient (CLI) | payer OTHER | LOC: M PLALAB 08:32 | PROVIDERS: ATTEND Specialist | DX: Z34.92 Encounter for supervision of normal pregnancy, unspecified, second trimester (principal); Z3A.00 Weeks of gestation of pregnancy not specified ==

== ENCOUNTER 2023-08-01 16:21 | Emergency (ER) | payer OTHER ==
[~2023-08-01] VITALS: Ht 172.7 cm; Wt 132.3 kg
[2023-08-01] MEDS ORDERED: LIOT5TAB6 (16:31)
[2023-08-01] MEDS ORDERED: PREN1CHW PO (16:31)
[2023-08-01] MEDS ORDERED: BUTA-198 (16:31)
[2023-08-01] MEDS ORDERED: ENOX40IN3 (16:31)
[2023-08-01] MEDS ORDERED: KETOROLAC 30 MG/ML 1ML VIAL IV ONE (17:25)
[2023-08-01] MEDS ORDERED: NS 1,000 ML IV ONE (17:25)
[2023-08-01] MEDS ORDERED: METOCLOPRAMIDE INJ 10MG/2ML VIAL IV ONE (17:25)
[2023-08-01] MEDS ORDERED: diphenhydrAMINE 50MG/ML VIAL IV ONE (17:25)
[2023-08-01 17:58] LABS: URIC ACID 3.8 MG/DL (3.1-7.8)
[2023-08-01 17:59] LABS: BASO # 0.1 10^3/uL (0.0-0.2); BASO % 0.4 % (0.0-1.0); EOS # 0.2 10^3/uL (0.0-0.5); EOS % 1.4 % (0.0-3.0); HEMATOCRIT 37.7 % (36.0-47.0); HEMOGLOBIN 12.7 g/dl (12.0-15.5); LYMPH # 2.7 10^3/uL (1.5-5.0); LYMPH % 18.6 % (24.0-44.0); MEAN CORPUSCULAR HGB CONC 33.7 g/dl (32.0-36.5); MEAN CORPUSCULAR VOLUME 89.1 fl (80.0-96.0); MONO # 1.2 10^3/uL (0.0-0.8); MONO % 8.1 % (2.0-8.0); NEUTROPHILS # 10.3 10^3/uL (1.5-8.5); NEUTROPHILS % 70.9 % (36.0-66.0); PLATELET COUNT, AUTOMATED 257 10^3/uL (150-450); RED BLOOD COUNT 4.23 10^6/uL (4.00-5.40); WHITE BLOOD COUNT 14.5 10^3/uL (4.0-10.0)
[2023-08-01 18:02] LABS: ALBUMIN 2.9 G/DL (3.2-5.2); ALKALINE PHOSPHATASE 35 U/L (46-116); ALT/SGPT 12 U/L (7.0-40); AST/SGOT < 8 U/L (<34); BILIRUBIN,DIRECT < 0.1 MG/DL (<0.4); BILIRUBIN,TOTAL 0.2 MG/DL (0.3-1.2); BLOOD UREA NITROGEN 10 MG/DL (9-23); CALCIUM LEVEL 9.2 MG/DL (8.5-10.1); CARBON DIOXIDE LEVEL 24 MMOL/L (20-31); CHLORIDE LEVEL 104 MMOL/L (98-107); CREATININE FOR GFR 0.49 MG/DL (0.55-1.30); GLOMERULAR FILTRATION RATE > 60.0 (>60); GLUCOSE, FASTING 98 MG/DL (60-100); MAGNESIUM LEVEL 1.6 MG/DL (1.8-2.4); POTASSIUM SERUM 3.9 MMOL/L (3.5-5.1); SODIUM LEVEL 136 MMOL/L (136-145); TOTAL PROTEIN 7.2 G/DL (5.7-8.2)
[2023-08-01 20:24] LABS: APPEARANCE, URINE HAZY (CLEAR); BACTERIA, URINE AUTO NEGATIVE (NEGATIVE); BILIRUBIN, URINE AUTO NEGATIVE (NEGATIVE); BLOOD, URINE BLOOD NEGATIVE (NEGATIVE); COLOR, URINE YELLOW (YELLOW); GLUCOSE, URINE (UA) AUTO NEGATIVE (NEGATIVE); KETONE, URINE AUTO NEGATIVE (NEGATIVE); LEUKOCYTE ESTERASE, URINE AUTO NEGATIVE (NEGATIVE); MUCUS, URINE SMALL (NEGATIVE); NITRITE, URINE AUTO NEGATIVE (NEGATIVE); PROTEIN, URINE AUTO NEGATIVE (NEGATIVE); RBC, URINE AUTO 2 /HPF (0-3); SPECIFIC GRAVITY URINE AUTO 1.028 (1.002-1.035); SQUAMOUS EPITHELIAL CELL UR AU 5 /HPF (0-6); UROBILINOGEN, URINE AUTO 0.2 mg/dL (0.0-2.0); WBC, URINE AUTO 2 /HPF (0-3)
[2023-08-01 20:33] LABS: RSV AMPLIFICATION NEGATIVE (NEGATIVE)
[2023-08-01 20:45] VITALS: BP 116/64; TEMP 98.2; O2SAT 98
== END 2023-08-01 20:59 | disposition home or self-care (01) ==
LOC: M ED 16:21
DX: O99.352 Diseases of the nervous system complicating pregnancy, second trimester (principal); O99.282 Endocrine, nutritional and metabolic diseases complicating pregnancy, second trimester; O99.342 Other mental disorders complicating pregnancy, second trimester; Z3A.17 17 weeks gestation of pregnancy; Z87.59 Personal history of other complications of pregnancy, childbirth and the puerperium; Z82.3 Family history of stroke
CPT/HCPCS: 70544; 70551; 80048; 80076; 81001; 83735; 84550; 85025; 85384; 87631; 93005; 93041; 94760; 96361; 96374; 96375; 99285; J1200; J1885; J2765

== ENCOUNTER → 2023-08-13 | Outpatient (CLI) | payer OTHER ==
[~2023-08-13] MED LIST changes: +BUTA-198; +ENOX40IN3; +LIOT5TAB6; +PREN1CHW PO
== END ==
LOC: M WHC 07:10
PROVIDERS: ATTEND Specialist
DX: Z34.82 Encounter for supervision of other normal pregnancy, second trimester (principal)

== ENCOUNTER → 2023-09-07 | Outpatient (CLI) | payer OTHER | LOC: M WHC 08:32 | PROVIDERS: ATTEND Specialist | DX: Z34.82 Encounter for supervision of other normal pregnancy, second trimester (principal); Z3A.22 22 weeks gestation of pregnancy ==

== ENCOUNTER → 2023-09-24 | Outpatient (CLI) | payer OTHER | LOC: M RAD 07:23 | PROVIDERS: ATTEND Specialist | DX: Z34.82 Encounter for supervision of other normal pregnancy, second trimester (principal) ==

== ENCOUNTER → 2023-09-24 | Outpatient (CLI) | payer OTHER ==
[2023-09-24 14:09] LABS: HEMATOCRIT 36.2 % (36.0-47.0); HEMOGLOBIN 11.9 g/dl (12.0-15.5); MEAN CORPUSCULAR HEMOGLOBIN 30.3 pg (27.0-33.0); MEAN CORPUSCULAR HGB CONC 32.9 g/dl (32.0-36.5); MEAN CORPUSCULAR VOLUME 92.1 fl (80.0-96.0); PLATELET COUNT, AUTOMATED 237 10^3/uL (150-450); RED BLOOD COUNT 3.93 10^6/uL (4.00-5.40); WHITE BLOOD COUNT 13.4 10^3/uL (4.0-10.0)
[2023-09-24 15:37] LABS: GC DNA AMPLIFICATION NEGATIVE (NEGATIVE)
== END ==
LOC: M PLALAB 09:30
PROVIDERS: ATTEND Specialist
DX: Z34.82 Encounter for supervision of other normal pregnancy, second trimester (principal)

== ENCOUNTER → 2023-09-28 | Outpatient (CLI) | payer OTHER ==
[~2023-09-28] MED LIST changes: +ALBU8.5H; +SUMA25TA3
== END ==
LOC: M LAB 07:07
PROVIDERS: ATTEND Specialist
DX: Z34.82 Encounter for supervision of other normal pregnancy, second trimester (principal)

== ENCOUNTER 2023-10-02 14:12 | Emergency (ER) | payer OTHER ==
[~2023-10-02] VITALS: Ht 172.7 cm; Wt 143.2 kg
[2023-10-02 14:12] VITALS: TEMP 98.3
[~2023-10-02 14:12] MED LIST changes: -ALBU8.5H; -SUMA25TA3
[2023-10-02] MEDS ORDERED: ALBU8.5H (16:25)
[2023-10-02] MEDS ORDERED: SUMA25TA3 (16:25)
[2023-10-02 17:10] LABS: BASO # 0.1 10^3/uL (0.0-0.2); BASO % 0.4 % (0.0-1.0); EOS # 0.2 10^3/uL (0.0-0.5); EOS % 1.1 % (0.0-3.0); HEMATOCRIT 35.9 % (36.0-47.0); LYMPH # 2.4 10^3/uL (1.5-5.0); LYMPH % 17.2 % (24.0-44.0); MEAN CORPUSCULAR HEMOGLOBIN 30.1 pg (27.0-33.0); MEAN CORPUSCULAR HGB CONC 33.4 g/dl (32.0-36.5); MONO # 1.2 10^3/uL (0.0-0.8); MONO % 8.6 % (2.0-8.0); NEUTROPHILS # 9.9 10^3/uL (1.5-8.5); NEUTROPHILS % 71.7 % (36.0-66.0); PLATELET COUNT, AUTOMATED 238 10^3/uL (150-450); RED BLOOD COUNT 3.99 10^6/uL (4.00-5.40); WHITE BLOOD COUNT 13.8 10^3/uL (4.0-10.0)
[2023-10-02 17:26] LABS: ALBUMIN 2.9 G/DL (3.2-5.2); ALKALINE PHOSPHATASE 32 U/L (46-116); ALT/SGPT 12 U/L (7.0-40); AST/SGOT 8 U/L (<34); BILIRUBIN,DIRECT < 0.1 MG/DL (<0.4); BILIRUBIN,TOTAL 0.2 MG/DL (0.3-1.2); BLOOD UREA NITROGEN 14 MG/DL (9-23); CALCIUM LEVEL 9.6 MG/DL (8.5-10.1); CARBON DIOXIDE LEVEL 23 MMOL/L (20-31); CHLORIDE LEVEL 105 MMOL/L (98-107); CREATININE FOR GFR 0.45 MG/DL (0.55-1.30); GLOMERULAR FILTRATION RATE > 60.0 (>60); GLUCOSE, FASTING 92 MG/DL (60-100); POTASSIUM SERUM 3.9 MMOL/L (3.5-5.1); SODIUM LEVEL 135 MMOL/L (136-145); TOTAL PROTEIN 7.1 G/DL (5.7-8.2)
[2023-10-02] MEDS: NS 1,000 ML IV ONE (17:40)
[2023-10-02 20:31] VITALS: BP 127/57
[2023-10-02 20:45] VITALS: O2SAT 97
== END 2023-10-02 21:04 | disposition home or self-care (01) ==
LOC: M ED 16:07
DX: O99.810 Abnormal glucose complicating pregnancy (principal); O24.419 Gestational diabetes mellitus in pregnancy, unspecified control; E03.9 Hypothyroidism, unspecified; Z3A.26 26 weeks gestation of pregnancy; Z91.09 Other allergy status, other than to drugs and biological substances; Z79.51 Long term (current) use of inhaled steroids; Z79.810 Long term (current) use of selective estrogen receptor modulators (SERMs); Z79.899 Other long term (current) drug therapy

== ENCOUNTER → 2023-10-09 | Outpatient (CLI) | payer OTHER ==
[~2023-10-09] MED LIST changes: +ALBU8.5H; +SUMA25TA3
== END ==
LOC: M RAD 07:53
PROVIDERS: ATTEND Specialist
DX: Z34.82 Encounter for supervision of other normal pregnancy, second trimester (principal); Z3A.27 27 weeks gestation of pregnancy

== ENCOUNTER → 2023-11-21 | Outpatient (CLI) | payer OTHER ==
[~2023-11-21] MED LIST changes: +L-ME7.5T8 PO; +MAGN250T7 PO; +PEPC40TA12 PO
== END ==
LOC: M RAD 15:30
PROVIDERS: ATTEND Specialist
DX: O24.419 Gestational diabetes mellitus in pregnancy, unspecified control (principal); Z3A.33 33 weeks gestation of pregnancy

== ENCOUNTER → 2023-12-06 | Outpatient (REF) | payer OTHER ==
[~2023-12-06] MED LIST changes: +ACET325C5 PO; +BENA25CA4 PO; +LOVE1INJ SC; +REGL5TAB2 PO; +TUMS500C PO
== END ==
LOC: M SFHCWAGY 12:14
PROVIDERS: ATTEND Specialist
DX: O24.419 Gestational diabetes mellitus in pregnancy, unspecified control (principal); Z3A.00 Weeks of gestation of pregnancy not specified

== ENCOUNTER 2024-01-12 13:46 | Emergency (ER) | payer OTHER ==
[~2024-01-12] VITALS: Ht 172.7 cm; Wt 138.6 kg
[~2024-01-12 13:46] MED LIST changes: +BUTACAP78 PO; +COLA100C5 PO; +CYTO25TA6 PO; +IBUP80TA PO; +LIOT5TAB6 PO; +OXYC1TAB23 PO
[2024-01-12] MEDS ORDERED: AMOX500C (14:20)
[2024-01-12] MEDS ORDERED: DEBL1TAB (14:20)
[2024-01-12] MEDS: NS 1,000 ML IV SCH (14:32)
[2024-01-12 15:08] LABS: BASO # 0.1 10^3/uL (0.0-0.2); BASO % 0.6 % (0.0-1.0); EOS # 0.3 10^3/uL (0.0-0.5); EOS % 3.4 % (0.0-3.0); HEMATOCRIT 33.9 % (36.0-47.0); HEMOGLOBIN 10.8 g/dl (12.0-15.5); LYMPH # 2.1 10^3/uL (1.5-5.0); LYMPH % 25.7 % (24.0-44.0); MEAN CORPUSCULAR HEMOGLOBIN 27.6 pg (27.0-33.0); MEAN CORPUSCULAR HGB CONC 31.9 g/dl (32.0-36.5); MEAN CORPUSCULAR VOLUME 86.5 fl (80.0-96.0); MONO # 0.7 10^3/uL (0.0-0.8); MONO % 8.5 % (2.0-8.0); NEUTROPHILS % 61.6 % (36.0-66.0); PLATELET COUNT, AUTOMATED 244 10^3/uL (150-450); RED BLOOD COUNT 3.92 10^6/uL (4.00-5.40); WHITE BLOOD COUNT 8.1 10^3/uL (4.0-10.0)
[2024-01-12 15:36] LABS: LIPASE 37 U/L (12-53)
[2024-01-12 15:45] LABS: ALBUMIN 3.3 G/DL (3.2-5.2); ALKALINE PHOSPHATASE 59 U/L (46-116); ALT/SGPT 23 U/L (7.0-40); AST/SGOT 10 U/L (<34); BILIRUBIN,DIRECT < 0.1 MG/DL (<0.4); BILIRUBIN,TOTAL 0.3 MG/DL (0.3-1.2); BLOOD UREA NITROGEN 10 MG/DL (9-23); CALCIUM LEVEL 9.2 MG/DL (8.5-10.1); CARBON DIOXIDE LEVEL 27 MMOL/L (20-31); CHLORIDE LEVEL 108 MMOL/L (98-107); CREATININE FOR GFR 0.64 MG/DL (0.55-1.30); GLOMERULAR FILTRATION RATE > 60.0 (>60); GLUCOSE, FASTING 101 MG/DL (60-100); POTASSIUM SERUM 4.4 MMOL/L (3.5-5.1); SODIUM LEVEL 139 MMOL/L (136-145); TOTAL PROTEIN 6.7 G/DL (5.7-8.2)
[2024-01-12] MEDS ORDERED: ISOVUE-370 76% 100ML VIAL As Ordered ONE (15:48)
[2024-01-12] MEDS: ACETAMINOPHEN TAB 650MG DOSE (2X325MG) PO ONE (16:55)
[2024-01-12 18:14] VITALS: BP 117/84; TEMP 97; O2SAT 97
== END 2024-01-12 18:32 | disposition home or self-care (01) ==
LOC: M ED 13:46
DX: R10.9 Unspecified abdominal pain (principal); T81.31XA Disruption of external operation (surgical) wound, not elsewhere classified, initial encounter; E03.9 Hypothyroidism, unspecified; F43.10 Post-traumatic stress disorder, unspecified; F32.A Depression, unspecified; F41.9 Anxiety disorder, unspecified; F90.9 Attention-deficit hyperactivity disorder, unspecified type; Z91.09 Other allergy status, other than to drugs and biological substances; Z79.2 Long term (current) use of antibiotics; Z79.1 Long term (current) use of non-steroidal anti-inflammatories (NSAID); Z79.899 Other long term (current) drug therapy; Z79.810 Long term (current) use of selective estrogen receptor modulators (SERMs)
CPT/HCPCS: 74177; 80048; 80076; 81001; 83690; 85025; 93041; 96360; 96361; 99284; Q9967

== ENCOUNTER → 2024-04-16 | Outpatient (REF) | payer OTHER ==
[~2024-04-16] MED LIST changes: +AMOX500C; +DEBL1TAB
== END ==
LOC: M LAB REF 11:47
PROVIDERS: ATTEND Physician Assistant
DX: B34.9 Viral infection, unspecified (principal)

== ENCOUNTER → 2024-06-21 | Outpatient (CLI) | payer OTHER | LOC: M RAD 10:35 | PROVIDERS: ATTEND Physician Assistant Medical | DX: J20.9 Acute bronchitis, unspecified (principal) ==

== ENCOUNTER 2024-06-28 10:31 | Observation (INO) | payer OTHER ==
[~2024-06-28] VITALS: Ht 172.7 cm; Wt 131.8 kg
[~2024-06-28 10:31] MED LIST changes: -DEBL1TAB; +DEBL1TAB PO
[2024-06-28 11:16] LABS: BASO # 0.1 10^3/uL (0.0-0.2); BASO % 0.8 % (0.0-1.0); EOS # 0.3 10^3/uL (0.0-0.5); EOS % 2.7 % (0.0-3.0); HEMATOCRIT 38.7 % (36.0-47.0); HEMOGLOBIN 13.1 g/dl (12.0-15.5); LYMPH # 1.2 10^3/uL (1.5-5.0); LYMPH % 11.8 % (24.0-44.0); MEAN CORPUSCULAR HEMOGLOBIN 28.5 pg (27.0-33.0); MEAN CORPUSCULAR HGB CONC 33.9 g/dl (32.0-36.5); MEAN CORPUSCULAR VOLUME 84.3 fl (80.0-96.0); MONO # 0.8 10^3/uL (0.0-0.8); MONO % 8.1 % (2.0-8.0); NEUTROPHILS # 7.5 10^3/uL (1.5-8.5); NEUTROPHILS % 76.2 % (36.0-66.0); PLATELET COUNT, AUTOMATED 250 10^3/uL (150-450); RED BLOOD COUNT 4.59 10^6/uL (4.00-5.40); WHITE BLOOD COUNT 9.8 10^3/uL (4.0-10.0)
[2024-06-28 11:50] LABS: BLOOD UREA NITROGEN 11 MG/DL (9-23); CALCIUM LEVEL 9.7 MG/DL (8.5-10.1); CARBON DIOXIDE LEVEL 21 MMOL/L (20-31); CHLORIDE LEVEL 106 MMOL/L (98-107); CREATININE FOR GFR 0.56 MG/DL (0.55-1.30); GLOMERULAR FILTRATION RATE > 60.0 (>60); GLUCOSE, FASTING 96 MG/DL (60-100); POTASSIUM SERUM 4.1 MMOL/L (3.5-5.1); SODIUM LEVEL 138 MMOL/L (136-145)
[2024-06-28 14:06] LABS: HCG, SERUM QUALITATIVE NEGATIVE (NEGATIVE)
[2024-06-28] MEDS: dexAMETHasone 20MG/5ML VIAL IV ONE (14:24)
[2024-06-28] MEDS ORDERED: ISOVUE-370 76% 100ML VIAL As Ordered ONE (14:37)
[2024-06-28] MEDS: IPRATROPIUM 0.5MG/ALBUTEROL 2.5MG INH SOL UD 3ML (DUONEB) NEB SCH (14:51)
[2024-06-28 15:21] VITALS: O2SAT 99
[2024-06-28] MEDS ORDERED: ACETAMINOPHEN 325 MG TAB PO PRN (18:40)
[2024-06-28] MEDS ORDERED: LEVALBUTEROL 1.25MG 0.5ML CONCENTRATE NEB NEB PRN (18:40)
[2024-06-28] MEDS: methylPREDNISolone 125MG 2ML VIAL IV SCH (19:13)
[2024-06-28] MEDS: KETOROLAC 30 MG/ML 1ML VIAL IV ONE (19:13)
[2024-06-28] MEDS: LEVALBUTEROL 1.25MG 0.5ML CONCENTRATE NEB NEB SCH (20:05)
[2024-06-28] MEDS: OSELTAMIVIR PHOSPHATE 75 MG CAP (TAMIFLU) PO SCH (20:14)
[2024-06-28] MEDS: BENZONATATE 100MG CAPSULE PO SCH (20:14)
[2024-06-28] MEDS: ACETAMINOPHEN 325 MG TAB PO SCH (20:15)
[2024-06-28 20:31] LABS: CK-MB VALUE MASS < 1.0 NG/ML (<3.6)
[2024-06-28 20:35] LABS: CPK CREATINE PHOSPHOKINASE 59 U/L (34-145); MB/CK RELATIVE INDEX 1.69 (< OR =4)
[2024-06-28] MEDS ORDERED: IBUP-1022 PO (21:24)
[2024-06-28] MEDS ORDERED: METH5TAB76 PO (21:24)
[2024-06-28] MEDS ORDERED: FLUC150T9 PO (21:24)
[2024-06-28] MEDS ORDERED: CIPR500T39 PO (21:24)
[2024-06-28] MEDS ORDERED: GABA-1171 PO (21:24)
[2024-06-28] MEDS ORDERED: VYVA1CAP PO (21:24)
[2024-06-28] MEDS ORDERED: FAMO20TA PO (21:26)
[2024-06-28] MEDS ORDERED: HOME MED LIST COMPLETE! XX SCH (21:30)
[2024-06-29 05:49] LABS: HEMATOCRIT 40.7 % (36.0-47.0); HEMOGLOBIN 13.4 g/dl (12.0-15.5); MEAN CORPUSCULAR HEMOGLOBIN 27.5 pg (27.0-33.0); MEAN CORPUSCULAR HGB CONC 32.9 g/dl (32.0-36.5); MEAN CORPUSCULAR VOLUME 83.4 fl (80.0-96.0); PLATELET COUNT, AUTOMATED 299 10^3/uL (150-450); RED BLOOD COUNT 4.88 10^6/uL (4.00-5.40); WHITE BLOOD COUNT 11.7 10^3/uL (4.0-10.0)
[2024-06-29 06:18] LABS: ALKALINE PHOSPHATASE 54 U/L (35-104); ALT/SGPT 28 U/L (7.0-40); AST/SGOT 12 U/L (<34); BILIRUBIN,TOTAL 0.4 MG/DL (0.3-1.2); BLOOD UREA NITROGEN 15 MG/DL (9-23); CALCIUM LEVEL 9.9 MG/DL (8.5-10.1); CARBON DIOXIDE LEVEL 18 MMOL/L (20-31); CHLORIDE LEVEL 109 MMOL/L (98-107); CREATININE FOR GFR 0.58 MG/DL (0.55-1.30); GLOMERULAR FILTRATION RATE > 60.0 (>60); GLUCOSE, FASTING 143 MG/DL (60-100); POTASSIUM SERUM 4.2 MMOL/L (3.5-5.1); SODIUM LEVEL 142 MMOL/L (136-145); TOTAL PROTEIN 7.9 G/DL (5.7-8.2)
[2024-06-29] MEDS ORDERED: PRED20TA PO (08:57)
[2024-06-29] MEDS ORDERED: BENZ-18 PO ×2 (08:57→08:58)
[2024-06-29] MEDS ORDERED: OSEL75CA2 PO (08:57)
[2024-06-29] MEDS: ENOXAPARIN 40MG/0.4ML SYRINGE (J1650 PER 10MG) SC SCH (09:58)
[2024-06-29 10:34] VITALS: BP 136/75; TEMP 99.3; O2SAT 95
== END 2024-06-29 10:36 | disposition home or self-care (01) ==
LOC: M ED 10:31 → M ED INP 10:32 → UNDOADMOB 18:37 → M ED INP 18:37
PROVIDERS: ADMIT Internal Medicine; ATTEND Internal Medicine
DX: J45.901 Unspecified asthma with (acute) exacerbation (principal); R63.0 Anorexia; F43.10 Post-traumatic stress disorder, unspecified; F32.A Depression, unspecified; F41.9 Anxiety disorder, unspecified; F90.9 Attention-deficit hyperactivity disorder, unspecified type; E03.9 Hypothyroidism, unspecified; R00.0 Tachycardia, unspecified; I73.00 Raynaud's syndrome without gangrene; J10.1 Influenza due to other identified influenza virus with other respiratory manifestations; R07.89 Other chest pain; Z79.899 Other long term (current) drug therapy
CPT/HCPCS: 36415; 71046; 71275; 80048; 80053; 82550; 82553; 84484; 84703; 85025; 85027; 87486; 87581; 87633; 87798; 94640; 96372; 96374; 96375; 96376; 99285; J1100; J1650; J1885; J2919; Q9967

== ENCOUNTER 2024-07-13 13:51 | Emergency (ER) | payer OTHER, SELFPAY ==
[~2024-07-13] VITALS: Ht 172.7 cm; Wt 131.0 kg
[~2024-07-13 13:51] MED LIST changes: +BENZ-18 PO; +CIPR500T39 PO; +FAMO20TA PO; +FLUC150T9 PO; +GABA-1171 PO; +IBUP-1022 PO; +METH5TAB76 PO; +OSEL75CA2 PO; +PRED20TA PO; +VYVA1CAP PO
[2024-07-13] MEDS: IPRATROPIUM 0.5MG/ALBUTEROL 2.5MG INH SOL UD 3ML (DUONEB) NEB SCH (14:20)
[2024-07-13] MEDS: methylPREDNISolone 125MG 2ML VIAL IV ONE (14:40)
[2024-07-13 15:18] LABS: BASO # 0.1 10^3/uL (0.0-0.2); BASO % 0.7 % (0.0-1.0); EOS # 0.6 10^3/uL (0.0-0.5); EOS % 3.7 % (0.0-3.0); HEMATOCRIT 37.3 % (36.0-47.0); HEMOGLOBIN 12.2 g/dl (12.0-15.5); LYMPH % 20.1 % (24.0-44.0); MEAN CORPUSCULAR HEMOGLOBIN 27.2 pg (27.0-33.0); MEAN CORPUSCULAR HGB CONC 32.7 g/dl (32.0-36.5); MEAN CORPUSCULAR VOLUME 83.3 fl (80.0-96.0); MONO # 1.1 10^3/uL (0.0-0.8); MONO % 7.3 % (2.0-8.0); NEUTROPHILS % 67.9 % (36.0-66.0); PLATELET COUNT, AUTOMATED 274 10^3/uL (150-450); RED BLOOD COUNT 4.48 10^6/uL (4.00-5.40); WHITE BLOOD COUNT 14.7 10^3/uL (4.0-10.0)
[2024-07-13 15:45] LABS: BLOOD UREA NITROGEN 9 MG/DL (9-23); CALCIUM LEVEL 8.6 MG/DL (8.5-10.1); CARBON DIOXIDE LEVEL 21 MMOL/L (20-31); CHLORIDE LEVEL 109 MMOL/L (98-107); CREATININE FOR GFR 0.54 MG/DL (0.55-1.30); GLOMERULAR FILTRATION RATE > 60.0 (>60); GLUCOSE, FASTING 102 MG/DL (60-100); POTASSIUM SERUM 4.3 MMOL/L (3.5-5.1); SODIUM LEVEL 143 MMOL/L (136-145)
[2024-07-13] MEDS: MAG SULF 1GM/100ML (MAG RUN) 1 GM in IV 1 EA IV SCH (15:52)
[2024-07-13 15:57] LABS: HCG, SERUM QUALITATIVE NEGATIVE (NEGATIVE)
[2024-07-13] MEDS ORDERED: NEBU1EAC74 NEB (18:03)
[2024-07-13] MEDS ORDERED: IPRA0.00 NEB (18:03)
[2024-07-13] MEDS ORDERED: PRED20TA PO (19:01)
[2024-07-13 19:08] VITALS: BP 156/86; TEMP 97.4; O2SAT 95
[2024-07-14] MEDS ORDERED: CLEV1MIS25 XX (18:59)
== END 2024-07-13 19:39 | disposition home or self-care (01) ==
LOC: M ED 13:51
DX: J06.9 Acute upper respiratory infection, unspecified (principal); Z87.891 Personal history of nicotine dependence; Z91.09 Other allergy status, other than to drugs and biological substances; Z79.51 Long term (current) use of inhaled steroids; Z79.1 Long term (current) use of non-steroidal anti-inflammatories (NSAID); Z79.52 Long term (current) use of systemic steroids; Z79.899 Other long term (current) drug therapy
CPT/HCPCS: 71045; 80047; 80048; 84703; 85025; 85379; 87486; 87581; 87633; 87798; 93005; 94760; 96365; 96375; 99284; J2919; J3475